=== PATIENT | female | born 1940 | race Caucasian/White ===

== ENCOUNTER 2018-10-17 09:30 | Emergency (ER) | payer MEDICARE, OTHER ==
[~2018-10-17] VITALS: Ht 152.4 cm; Wt 76.7 kg
--- OUTSIDE RECORDS SUMMARY | ~2018-10-17 | XMS | Clinical Summary ---
Demographics + + + | Address | [address] | | | [place] [address] | + + + | Home Phone | | + + + | Preferred Language | Unknown | + + + | Marital Status | | + + + | Sabianism Affiliation | Unknown | + + + | Race | Unknown | + + + | Ethnic Group | Unknown | + + + Author + + + | Author | [facility] | + + + | Organization | [facility] | + + + | Address | Unknown | + + + | Phone | Unavailable | + + + Support + + +---------+ + | Name | Relationship | Address | Phone | + + +---------+ + | Tyler Delgado | ECON | Unknown | | + + +---------+ + | Aime Barrera | ECON | Unknown | | + + +---------+ + Care Team Providers + +------+ + | Care Mutuel Machine Operator Name | Role | Phone | [...] ambulated her the entire length of the hospitals 2 wings (350 | | yards), no [...] | Echo: naLast Stress Test, 12/08/2014: 3:01min Christian, no chest | | pain, +SOB, ECG (+) [...] Vaccine: Influenza | | | | | (Season Ended) | 9 | | | + + [...] +------+-------+ + | MEDICARE | MEDICA | [id number] | | | [address] | | | RE | | | | [place] [address] | | | IP-OP | | | | | + +--------+ +------+-------+ + | AETNA | AETNA | [id number] | | | | | | - [...] | | [place] | | 1941 | [phone] | | | [place] | | | [phone] | | + +--------+ +--------+ + +
--- OUTSIDE RECORDS SUMMARY | ~2018-10-17 | XMS | Clinical Summary ---
Demographics + + + | Address | [address] | | | [place] [address] | + + + | Home Phone | | + + + | Preferred Language | Unknown | + + + | Marital Status | | + + + | Pentecostal Affiliation | Unknown | + + + | Race | Unknown | + + + | Ethnic Group | Unknown | + + + Author + + + | Author | [facility] | + + + | Organization | [...] Team Providers + +------+ + | Care Gasoline Engine Inspector Name | Role | Phone | + [...] +------+-------+ + | MEDICARE | MEDICA | [id number] | | | [address] | | | RE | | | | [place] [phone] | | | IP-OP | | | | | + +--------+ +------+-------+ + | AETNA | AETNA | [id number] | | | | | | - [...] | | [place] | | 1941 | [phone] | | | [place] | | | [phone] | | + +--------+ +--------+ + +
--- OUTSIDE RECORDS SUMMARY | ~2018-10-17 | XMS | Clinical Summary ---
Demographics + + + | Address | [address] | | | [place] [address] | + + + | Home Phone | | + + + | Preferred Language | Unknown | + + + | Marital Status | | + + + | Yazidi Affiliation | Unknown | + + + | Race | Unknown | + + + | Ethnic Group | Unknown | + + + Author + + + | Author | [facility] | | | and Stivenana | + + + | Organization | [facility] [...] [place], [place] | | | | | [address] | | + + + + + | [facility] | ECON | [address] | | | | | [place], [place] | | | | | [address] | | + + + + + Care Team Providers + +------+ + | Care Metal Melter Name | Role | Phone | + +------+ + | Jocelin Haney | PP | | + +------+ + Allergies No Known Allergies Medications + + + +---------+------+------+-------+ | Medication | Sig | Dispensed | Refills | Star | End | Statu | | | | | | t | Date | s | | | | | | Date | | | + + + +---------+------+------+-------+ | levothyroxine | Take 75 mcg by mouth | | 0 | | | Activ | | (SYNTHROID, | every morning | | | | | e | | LEVOTHROID) 75 MCG | (before breakfast). | | | | | | | tablet | | | | | | | + + + +---------+------+------+-------+ | amLODIPine | Take 10 mg by mouth | | 0 | | | Activ | | (NORVASC) 5 mg | Daily. | | | | | e | | tablet | | | | | | | + + + +---------+------+------+-------+ | metFORMIN | Take 500 mg by mouth | | 0 | | | Activ | | (GLUCOPHAGE) 500 mg | 2 times daily (with | | | | | e | | tablet | breakfast & | | | | | | | | dinner). | | | | | | + + + +---------+------+------+-------+ | losartan (COZAAR) | Take 50 mg by mouth | | 0 | | | Activ | | 50 mg tablet | Daily. | | | | | e | + + + +---------+------+------+-------+ | aspirin 81 mg | Take 81 mg by mouth | | 0 | | | Activ | | chewable tablet | Daily. | | | | | e | + + + +---------+------+------+-------+ Active Problems Not on file Social History + + + +--------+ + [...] recent travel history available. | + + Last Filed Vital Signs + + + + | Vital Sign | Reading | Time Taken | + + + + | Blood Pressure | 145/70 | 01/03/20181304 PDT | + + + + | Pulse | 64 | 01/03/20181304 PDT | + + + + | Temperature | 36.6 C (97.9 F) | 01/03/20181304 PDT | + + + + | Respiratory Rate | 16 | 01/03/20181304 PDT | + + + + | Oxygen Saturation | 97% | 01/03/20181304 PDT | + + + + | Inhaled Oxygen | - | - | | Concentration | | | + + + + | Weight | 77.1 kg (170 lb) | 10/27/20131124 PDT | + + + + | Height | 152.4 cm (5') | 10/27/20131124 PDT | + + + + | Body Mass Index | 33.2 | 10/27/2013 1125 PDT | + + + + Plan [...] filefrom Last 3 Months Insurance + +--------+ +--------+ +---------+--------+ | Payer | Benefi | Subscriber | Effect | Phone | Address | Type | | | t Plan | ID | abel | | | | | | / | | Dates | | | | | | Group | | | | | | + +--------+ +--------+ +---------+--------+ | MEDICARE | MEDICA | [id number] | 06/18/19 | [phone] | | Medica | | | RE | | 05-Pre | 5 | | re | | | PART A | | sent | | | | | | AND B | | | | | | + +--------+ +--------+ +---------+--------+ | AETNA | AETNA | [id number] | 06/18/19 | | | PPO | | | STATE | | 14-Pre | | | | | | [place] | | sent | | | | | | [place] | | | | | | | | [place] | | | | | | + +--------+ +--------+ +---------+--------+ | MEDICARE | MEDICA | [id number] | 06/18/19 | [phone] | | Medica | | | RE | | 05-Pre | 5 | | re | | | PART A | | sent | | | | | | AND B | | | | | | + +--------+ +--------+ +---------+--------+ | AETNA | AETNA | [id number] | 06/18/19 | | | PPO | | | STATE | | 14-Pre | | | | | | [place] | | sent | | | | | | [place]IRE | | | | | | | | [place] | | | | | | + +--------+ +--------+ +---------+--------+ + +--------+ +--------+ + + | Guarantor Name | Accoun | Relation to | Date | Phone | Billing Address | | | t Type | Patient | of | | | | | | | | | | + +--------+ +--------+ + + | Norma House | Person | Self | [birth year] | | [address] | | [place] | al/Fam | | 1941 | [phone] | [place] [address] | | | [place] | | | 2 (Home) | | + +--------+ +--------+ + + | Norma House | Person | Self | [birth year] | | [address] | | [place] | al/Fam | | 1941 | [phone] | [place] [address] | | | [place] | | | 2 (Home) | | + +--------+ +--------+ + + Advance Directives Patient has advance care planning documents on file. For more information, please contact:[facility] [place] [address]"
--- OUTSIDE RECORDS SUMMARY | ~2018-10-17 | XMS | Clinical Summary ---
Demographics + + + | Address | [address] | | | [place] [address] | + + + | Home Phone | | + + + | Preferred Language | Unknown | + + + | Marital Status | | + + + | Church Affiliation | Unknown | + + + | Race | Unknown | + + + | Ethnic Group | Unknown | + + + Author + + + | Author | [facility] | | | and St[place] | + + + | Organization | [facility] | | | and [...] [place], [place] | | | | | [address] | | + + + + + | [facility] | ECON | [address] | | | | | [place], [place] | | | | | [address] | | + + + + + Care Team Providers + +------+ + | Care Estate And Trust Tax Principal Name | Role | Phone | + [...] +--------+ +---------+--------+ | MEDICARE | MEDICA | [id number] | 06/18/19 | [phone] | | Medica | | | RE | | 05-Pre | 5 | | re | | | PART A | | sent | | | | | | AND B | | | | | | + +--------+ +--------+ +---------+--------+ | AETNA | AETNA | [id number] | 06/18/19 | | | PPO | | | [place] | | 14-Pre | | | | | | [place] | | sent | | | | | | [place] | | | | | | | | [place] | | | | | | + +--------+ +--------+ +---------+--------+ | MEDICARE | MEDICA | [id number] | 06/18/19 | [phone] | | Medica | | | RE | | 05-Pre | 5 | | re | | | PART A | | sent | | | | | | AND B | | | | | | + +--------+ +--------+ +---------+--------+ | AETNA | AETNA | [id number] | 06/18/19 | | | PPO | [...] [place] | al/Fam | | 1941 | [phone] | [place] [address] | | | [place] | | | 2 (Home) | | + +--------+ +--------+ + + | Norma House | Person | Self | [birth year] | | [address] | | [place] | al/Fam | | 1941 | [phone] | [place] [address] | | | [place] | | | 2 (Home) | | + +--------+ +--------+ + + Advance Directives Patient has advance care planning documents on file. For more information, please contact:[facility] [place] [address]"
[~2018-10-17 09:30] MED LIST: ALLOPURINOL300 MG PO; AMLODIPINE BESY10 MG PO; FLUOXETINE HCL20 MG PO; JANUVIA100 MG PO; LOSARTAN POTASS50 MG PO; PATANOL5 ML OD; SIMVASTATIN20 MG PO; SYNTHROID75 MCG PO
[2018-10-17] MEDS ORDERED: LIPITOR10 MG PO (09:58)
[2018-10-17] MEDS ORDERED: FORTAMET500 MG PO (09:58)
[2018-10-17] MEDS ORDERED: LOSARTAN-HCTZ1 EAC2 PO (09:59)
--- NOTE | 2018-10-17 13:51 | EKG ---
[facility] [address] [place], [place] [address] Signed Sinus bradycardia with sinus arrhythmia with occasional premature ventricular complexes Low voltage QRS Nonspecific ST abnormality Abnormal ECG No previous ECGs available Confirmed by HORTENCIA JACOBSEN DO ([id number]) on 10/17/2018 1:51:15 PM Electronically Signed By: HORTENCIA JACOBSEN DO 10/17/18 1351 PATIENT NAME: KRISH DELGADO Electrocardiogram DATE OF : 38 PHYSICIAN: HORTENCIA JACOBSEN DO REPORT #: [id number] REPORT IS CONFIDENTIAL AND NOT TO BE RELEASED WITHOUT AUTHORIZATION
== END 2018-10-17 11:47 | disposition home or self-care (01) ==
LOC: ED 09:30
DX: I10 Essential (primary) hypertension (principal); F32.9 Major depressive disorder, single episode, unspecified; F41.9 Anxiety disorder, unspecified; Z87.891 Personal history of nicotine dependence; Z88.8 Allergy status to other drugs, medicaments and biological substances; Z79.899 Other long term (current) drug therapy; Z79.84 Long term (current) use of oral hypoglycemic drugs
CPT/HCPCS: 80053; 93005; 93010; 99283-25

== ENCOUNTER 2019-07-03 18:28 | Emergency (ER) | payer MEDICARE, OTHER ==
[~2019-07-03] VITALS: Ht 152.4 cm; Wt 76.7 kg
--- OUTSIDE RECORDS SUMMARY | ~2019-07-03 | XMS | Clinical Summary ---
Demographics + + + | Address | [address] | | | [place] [address] | + + + | Home Phone | | + + + | Preferred Language | Unknown | + + + | Marital Status | | + + + | Confucianist Affiliation | Unknown | + + + | Race | Unknown | + + + | Ethnic Group | Unknown | + + + Author + + + | Author | [facility] (Historical as of | | | 02-01-19) | + + + | Organization | [facility] (Historical as of | | | 02-01-19) | + + + | Address | Unknown | + + + | Phone | Unavailable | + + + Support + + +---------+ + | Name | Relationship | Address | Phone | + + +---------+ + | Tyler Delgado | LAXMI | Unknown | | + + +---------+ + | BarryAime devine | ECON | Unknown | | + + +---------+ + Care Team Providers + +------+ + | Care Music Library Assistant Name | Role | Phone | + +------+ + | Willi Onofre MD | PP | Unavailable | + +------+ + Allergies No Known Allergies Current Medications + + +-------+---------+------+------+-------+ | Prescription | Sig. | Disp. | Refills | Star | End | Statu | | | | | | t | Date | s | | | | | | Date | | | + + +-------+---------+------+------+-------+ | sitagliptan | Take 100 mg by mouth | | | | | Activ | | (JANUVIA) 100 MG | every morning. | | | | | e | | tablet | | | | | | | + + +-------+---------+------+------+-------+ | allopurinol | Take 300 mg by mouth | | | | | Activ | | (ZYLOPRIM) 300 MG | daily. | | | | | e | | tablet | | | | | | | + + +-------+---------+------+------+-------+ | aspirin 81 MG EC | Take 81 mg by mouth | | | | | Activ | | tablet | daily with | | | | | e | | | breakfast. | | | | | | + + +-------+---------+------+------+-------+ | levothyroxine | Take 75 mcg by mouth | | | | | Activ | | (SYNTHROID) 75 MCG | every morning | | | | | e | | tablet | before breakfast. | | | | | | + + +-------+---------+------+------+-------+ | losartan (COZAAR) | Take 50 mg by mouth | | | | | Activ | | 50 MG tablet | daily. | | | | | e | + + +-------+---------+------+------+-------+ | amLODIPine | Take 10 mg by mouth | | | | | Activ | | (NORVASC) 10 MG | daily. | | | | | e | | tablet | | | | | | | + + +-------+---------+------+------+-------+ | simvastatin | Take 10 mg by mouth | | | | | Activ | | (ZOCOR) 10 MG | nightly. 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 | + + + + + | Hyperlipidemia | 11/12/2014 | + + + + + | Last Assessment & Plan: Hyperlipidemia, continue current | | meds, labs anticipated. | + + + + + | Right carotid bruit | 11/12/2014 | + + + + + | Last Assessment & Plan: Right carotid bruit, asymptomatic. | | Carotid ultrasound results discussed with patient. Clinically | | asymptomatic.Carotid US,12/08/2014: moderate disease right ICA, | | mild disease left ICA. | + + + + + | PAD (peripheral artery disease) | 11/12/2014 | + + + + + | Last Assessment & Plan: Right femoral bruit, diminished | | pulses in the left leg. Despite her advanced disease, I | | ambulated her the entire length of the [facility] 2 wings (350 | | yards), no symptoms of claudication.Arterial US, lower ext, | | 12/08/2014: severe disease right common iliac, moderate right SFA, | | DAVE: 0.69 | | mild-moderate disease common left common iliac, moderate left | | SFA, DAVE: 0.77 | + + + + + | Precordial pain | 11/12/2014 | + + + + + | Last Assessment & Plan: Chest pain. 74yo WF, with | | new-onset chest discomfort, throat tightness and face numbness. | | She was home when she noticed these symptoms, not significantly | | active, was or where that her blood pressure was high, apparently | | had forgotten to take her medicines, becoming quite concerned | | she emergency room, workup was unremarkable, discharged for | | outpatient follow-up. She is modestly active, caring for her | | , she is not had a prior history of chest discomfort. She | | does not recall having shortness of breath, nausea, or | | diaphoresis with her recent chest discomfort, unaware of any | | palpitations. She has no prior history of coronary artery | | disease, myocardial infarction, congestive heart failure, | | congenital heart disease, rheumatic heart disease, palpitations, | | or syncope. She does have a number of risk factors for coronary | | disease including hypertension and diabetes. She was a previous | | smoker, but quit smoking in 1997. She states that her | | has reported to her, episodes of her not breathing when she is | | sleeping, but she denies snoring. Patient had an exercise | | tolerance test, intermediate risk. Because of her symptoms and | | risk factors, will have her undergo nuclear perfusion study. | | Lipid panel is pending, consider intensifying lipid therapy.Hx | | CABG: noHx PCI/stent: noHx Pacemaker/ICD: noLast Cath: naLast | | Echo: naLast Stress Test, 12/08/2014: 3:01min eldno Gonzales chest | | pain, +SOB, ECG (+) for ischemia, occ PVC's.ECG, 10/12/2014: sinus | | bradycardia (49bpm), low voltage. | + + Family History + + +------+ + | Medical History | Relation | Name | Comments | + + +------+ + | Kidney disease | Maternal | | | | | Grandfath | | | | | er | | | + + +------+ + | Heart disease | Mother | | | + + +------+ + | Hypertension | Mother | | | + + +------+ + | Stroke | Mother | | | + + +------+ + | Diabetes type II | Paternal | | | | | Grandmoth | | | | | er | | | + + +------+ + | Heart disease | Paternal | | | | | Grandmoth | | | | | er | | | + + +------+ + + +------+ + + | Relation | Name | Status | Comments | + +------+ + + | Father | | | unknown status | + +------+ + + | Maternal Grandfather | | | kidney disease | | | | (Age | | | | | 88) | | + +------+ + + | Maternal Grandmother | | | unknown status | | | | (Age | | | | | 76) | | + +------+ + + | Mother | | | HTN,COPD,CHF, heart disease,CVA | | | | (Age | | | | | 78) | | + +------+ + + | Paternal Grandmother | | | Diabetes, heart disease | | | | (Age | | | | | 50) | | + +------+ + + Social History + + + +--------+ + | Tobacco Use | Types | Packs/Day | Years | Date | | | | | Used | | + + + +--------+ + | Former Smoker | Cigarettes | 1 | 28 | Quit: 03/18/1998 | + + + +--------+ + + +---+---+---+ | Smokeless Tobacco: | | | | | Never Used | | | | + +---+---+---+ + + +---------+ + | Alcohol Use | Drinks/We | oz/Week | Comments | | | ek | | | + + +---------+ + | No | 0 | 0.0 | 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., sober since | | | Standard | | 09/23/1991 | | | drinks or | | | | | | | | | | equivalen | | | | | t | | | + + +---------+ + + + + | Sex Assigned at | Date Recorded | | | | + + + | Not on file | | + + + Last Filed Vital Signs + + + + | Vital Sign | Reading | Time Taken | + + + + | Blood Pressure | 100/64 | 12/31/2014 1:38 PM PDT | + + + + | Pulse | 60 | 12/31/2014 1:38 PM PDT | + + + + | Temperature | - | - | + + + + | Respiratory Rate | 20 | 12/31/2014 1:38 PM PDT | + + + + | Oxygen Saturation | 98% | 12/31/2014 1:38 PM PDT | + + + + | Inhaled Oxygen | - | - | | Concentration | | | + + + + | Weight | 81.1 kg (178 lb 14.4 | 12/31/2014 1:38 PM PDT | | | oz) | | + + + + | Height | 154.9 cm (5' 1") | 12/31/2014 1:38 PM PDT | + + + + | Body Mass Index | 33.8 | 12/31/2014 1:38 PM PDT | + + + + Plan of Treatment + + + + + | Health Maintenance | Due Date | Last Done | Comments | + + + + + | Vaccine: | | | | | Dtap/Tdap/Td (1 - | 9 | | | | Tdap) | | | | + + + + + | Vaccine: Zoster (1 | | | | | of 2) | 0 | | | + + + + + | DEXA SCAN SCREENING | | | | | | 5 | | | + + + + + | Vaccine: | | | | | Pneumococcal 65+ | 5 | | | | Low/Medium Risk (1 | | | | | of 2 - PCV13) | | | | + + + + + | Vaccine: Influenza | | | | | (#1) | 9 | | | + + + + + Results Not on filefrom Last 3 Months Insurance + +--------+ +------+-------+ + | Payer | Benefi | Subscriber | Type | Phone | Address | | | t Plan | ID | | | | | | / | | | | | | | Group | | | | | + +--------+ +------+-------+ + | MEDICARE | MEDICA | [id number] | | | [address] | | | RE | | | | [place] [phone] | | | IP-OP | | | | | + +--------+ +------+-------+ + | AETNA | AETNA | [id number] | | | | | | - | | | | | | | [place] | | | | | | | [place] | | | | | | | [place] | | | | | + +--------+ +------+-------+ + + +--------+ +--------+ + + | Guarantor Name | Accoun | Relation to | Date | Phone | Billing Address | | | t Type | Patient | of | | | | | | | | | | + +--------+ +--------+ + + | KRISH DELGADO | Person | Self [birth year] | Home: | [address] | | | [place] | | 1941 | [phone] | | | [place] | | | [phone] | | + +--------+ +--------+ + +
--- OUTSIDE RECORDS SUMMARY | ~2019-07-03 | XMS | Encounter Summary ---
Demographics + + + | Address | [address] | | | [place] [address] | + + + | Home Phone | | + + + | Preferred Language | Unknown | + + + | Marital Status | | + + + | Advent Affiliation | Unknown | + + + | Race | Unknown | + + + | Ethnic Group | Unknown | + + + Author + + + | Author | [facility] | | | and [place] | + + + | Organization | [facility] | | | and [place] | + + + | Address | Unknown | + + + | Phone | Unavailable | + + + Support + + + + + | Name | Relationship | Address | Phone | + + + + + | Aime Barrera | ECON | [address] | | | | | [place], [place] | | | | | [address] | | + + + + + | [facility] | ECON | [address] | + | | | | [place], [place] | | | | | [address] | | + + + + + Care Team Providers + +------+ + | Care Malt House Kiln Operator Name | Role | Phone | + +------+ + | Jocelin Haney | PCP | | + +------+ + Encounter Details +--------+ + + + + | Date | Type | Department | Care Team | Description | +--------+ + + + + | 01/11/ | Orders Only | [facility] | Nestor Mckenzie | | | 2014 | | CARDIOLOGY [place] | MD [address] | | | | | [address] | Alicia Mccabe Jose [address] | | | | | [place], [place] | [place] [address] | | | | | [address] | [phone] | | | | | [phone] | | | +--------+ + + + + Social History + + + +--------+ + | Tobacco Use | Types | Packs/Day | Years | Date | | | | | Used | | + + + +--------+ + | Former Smoker | Cigarettes | 1 | | Quit: 10/27/1997 | + + + +--------+ + + + +---------+ + | Alcohol Use | Drinks/Week | oz/Week | Comments | + + +---------+ + | No | | | Alcoholic | | | | | Drinks/day: drank | | | | | 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 | + + documented as of this encounter Plan of Treatment Not on filedocumented as of this encounter Procedures + +--------+ + + + | Procedure Name | Priori | Date/Time | Associated Diagnosis | Comments | | | ty | | | | + +--------+ + + + | LIPID PANEL | Routin | 01/11/2015 | | Results for this | | | e | 11:02 AM | | procedure are in the | | | | PDT | | results section. | + +--------+ + + + | CK TOTAL | Routin | 01/11/2015 | | Results for this | | | e | 11:02 AM | | procedure are in the | | | | PDT | | results section. | + +--------+ + + + | COMPREHENSIVE | Routin | 01/11/2015 | | Results for this | | METABOLIC PANEL | e | 11:02 AM | | procedure are in the | | | | PDT | | results section. | + +--------+ + + + documented in this encounter Results CK Total (01/11/2015 11:02 AM PDT) + +-------+ + + + | Component | Value | Ref Range | Performed | Pathologist | | | | | At | Signature | + +-------+ + + + | CK, Total | 92 | 24 - 170 U/L | EXTERNAL | | | | | | LAB | | + +-------+ + + + + + | Specimen | + + | Blood specimen | | (specimen) | + + + +---------+ + + | Performing | Address | City/State/Zipcode | Phone Number | | Organization | | | | + +---------+ + + | EXTERNAL LAB | | | | + +---------+ + + Lipid Panel (01/11/2015 11:02 AM PDT) + +-------+ + + + | Component | Value | Ref Range | Performed | Pathologist | | | | | At | Signature | + +-------+ + + + | Cholesterol | 168 | 200 mg/dL | EXTERNAL | | | | | | LAB | | + +-------+ + + + | Triglycerid | 118 | 30 - 150 mg/dL | EXTERNAL | | | es | | | LAB | | + +-------+ + + + | HDL | 46.2 | 40 mg/dl | EXTERNAL | | | | | | LAB | | + +-------+ + + + | LDL | 98 | 100 mg/dL | EXTERNAL | | | Cholesterol | | | LAB | | | , | | | | | | Calculated, | | | | | | External | | | | | + +-------+ + + + | LDl/HDL | | | EXTERNAL | | | Ratio | | | LAB | | + +-------+ + + + | Chol/HDL | 3.6 | 4.44 | EXTERNAL | | | Ratio | | | LAB | | + +-------+ + + + | VLDL | 24 | 4 - 40 mg/dL | EXTERNAL | | | | | | LAB | | + +-------+ + + + | Non HDL | 122 | 130 | EXTERNAL | | | Chol. | | | LAB | | | (LDL+VLDL) | | | | | + +-------+ + + + + + | Specimen | + + | Blood specimen | | (specimen) | + + + +---------+ + + | Performing | Address | City/State/Zipcode | Phone Number | | Organization | | | | + +---------+ + + | EXTERNAL LAB | | | | + +---------+ + + Comprehensive Metabolic Panel (01/11/2015 11:02 AM PDT) + +-------+ + + + | Component | Value | Ref Range | Performed | Pathologist | | | | | At | Signature | + +-------+ + + + | Glucose, | 98 | 70 - 100 mg/dL | EXTERNAL | | | Fasting | | | LAB | | + +-------+ + + + | BUN | 18 | 6 - 23 mg/dL | EXTERNAL | | | | | | LAB | | + +-------+ + + + | Creatinine | 0.77 | 0.70 - 1.18 | EXTERNAL | | | | | mg/dL | LAB | | + +-------+ + + + | BUN/Creatin | 23.4 | 6.0 - 28.6 | EXTERNAL | | | ine Ratio | | | LAB | | + +-------+ + + + | Calcium | 9.8 | 8.4 - 10.2 | EXTERNAL | | | | | mg/dL | LAB | | + +-------+ + + + | Protein, | 7.1 | 6.0 - 8.0 g/dL | EXTERNAL | | | Total | | | LAB | | + +-------+ + + + | Albumin | 4.4 | 3.5 - 5.0 | EXTERNAL | | | | | | LAB | | + +-------+ + + + | Globulin | 2.7 | 1.8 - 3.5 | EXTERNAL | | | | | | LAB | | + +-------+ + + + | A/G Ratio | 1.6 | 1.1 - 2.4 | EXTERNAL | | | | | | LAB | | + +-------+ + + + | Bilirubin | 0.7 | 0.0 - 1.2 mg/dL | EXTERNAL | | | Total | | | LAB | | + +-------+ + + + | ALP, | 66 | 30 - 128 | EXTERNAL | | | External | | | LAB | | + +-------+ + + + | ALT | 19 | 7 - 52 U/L | EXTERNAL | | | | | | LAB | | + +-------+ + + + | AST | 18 | 13 - 39 U/L | EXTERNAL | | | | | | LAB | | + +-------+ + + + | Na | 135 | 132 - 143 | EXTERNAL | | | | | mmol/L | LAB | | + +-------+ + + + | K | 4.3 | 3.6 - 5.1 | EXTERNAL | | | | | mmol/L | LAB | | + +-------+ + + + | Cl | 101 | 95 - 112 mmol/L | EXTERNAL | | | | | | LAB | | + +-------+ + + + | CO2 | 25 | 19 - 31 mmol/L | EXTERNAL | | | | | | LAB | | + +-------+ + + + | Anion Gap | 13.3 | 7 - 21 mmol/L | EXTERNAL | | | | | | LAB | | + +-------+ + + + | Estimated | 73 | mg/dL | EXTERNAL | | | GFR | | | LAB | | + +-------+ + + + + + | Specimen | + + | Blood specimen | | (specimen) | + + + +---------+ + + | Performing | Address | City/State/Zipcode | Phone Number | | Organization | | | | + +---------+ + + | EXTERNAL LAB | | | | + +---------+ + + documented in this encounter Visit Diagnoses Not on filedocumented in this encounter"
--- OUTSIDE RECORDS SUMMARY | ~2019-07-03 | XMS | Encounter Summary ---
Demographics + + + | Address | [address] | | | [place] [address] | + + + | Home Phone | | + + + | Preferred Language | Unknown | + + + | Marital Status | | + + + | Mormon Affiliation | Unknown | + + + | Race | Unknown | + + + | Ethnic Group | Unknown | + + + Author + + + | Author | [facility] | | | and [place] | + + + | Organization | [facility] | | | and [place] | [...] [place], [place] | | | | | [address] | | + + + + + | [facility] | ECON | [address] | | | | | [place], [place] | | | | | [address] | | + + + + + Care Team Providers + +------+ + | Care Director Of Early Childhood Name | Role | Phone | + +------+ + | Willi Onofre MD | PCP | | + +------+ + Reason for Visit + + + | Reason | Comments | + + + | Nausea | | + + + | Weakness | | + + + | Dizziness | | + + + Encounter Details +--------+ + + + + | Date | Type | Department | Care Team | Description | +--------+ + + + + | 10/27/ | Emergency | [facility] | Cindy, | Hypertensive urgency | | 2013 | | [facility] | Ady Robert MD [address] | (Primary Dx); | | | | CENTER [address] | [facility] | Headache | | | | [place], [place] | [place] [address] | | | | | [address] | [phone] | | | | | [phone] | | | +--------+ + + + + Social History + + + +--------+ + | Tobacco Use | Types | Packs/Day | Years | Date | | | | | Used | | + + + +--------+ + | Former Smoker | Cigarettes | | | Quit: 10/27/1997 | + + + +--------+ + + + +---------+ + | Alcohol Use | Drinks/Week | oz/Week | Comments | + + +---------+ + | No | | | none since 1991 | + + +---------+ + + + [...] + + documented as of this encounter Last Filed Vital Signs + + + + + | Vital Sign | Reading | Time Taken | Comments | + + + + + | Blood Pressure | 147/56 | 10/27/2013 1:16 PM | | | | | PDT | | + + + + + | Pulse | 54 | 10/27/2013 1:16 PM | | | | | PDT | | + + + + + | Temperature | 36.7 C (98.1 F) | 10/27/2013 11:25 AM | | | | | PDT | | + + + + + | Respiratory Rate | 18 | 10/27/2013 1:16 PM | | | | | PDT | | + + + + + | Oxygen Saturation | 99% | 10/27/2013 1:16 PM | | | | | PDT | | + + + + + | Inhaled Oxygen | - | - | | | Concentration | | | | + + + + + | Weight | 77.1 kg (170 lb) | 10/27/2013 11:25 AM | | | | | PDT | | + + + + + | Height | 152.4 cm (5') | 10/27/2013 11:25 AM | | | | | PDT | | + + + + + | Body Mass Index | 33.2 | 10/27/2013 11:25 AM | | | | | PDT | | + + + + + documented in this encounter Discharge Instructions Instructions Ady White MD - 10/27/2013Keep track of her blood pressure and pul se rate 2-3 times daily. Document that, and take it to your next appointment with Dr. Robi pino. I would like for you to followup with Dr. Onofre within the next week or 2 at the most . If your symptoms worsen, he should return to the ER immediately. documented in this encounter Medications at Time of Discharge + + + +---------+ + + | Medication | Sig | Dispensed | Refills | Start | End Date | | | | | | Date | | + + + +---------+ + + | levothyroxine | Take 75 mcg by mouth | | 0 | | | | (SYNTHROID, | every morning | | | | | | LEVOTHROID) 75 MCG | (before breakfast). | | | | | | tablet | | | | | | + + + +---------+ + + | ondansetron | Take 1 tablet by | 15 | 0 | 10/28/19 | | | (ZOFRAN ODT) 4 mg | mouth every 6 hours | tablet | | 14 | 4 | | disintegrating | as needed for Nausea | | | | | | tablet | for up to 7 days. | | | | | + + + +---------+ + + documented as of this encounter Plan of Treatment Not on filedocumented as of this encounter Procedures + +--------+ + + + | Procedure Name | Priori | Date/Time | Associated Diagnosis | Comments | | | ty | | | | + +--------+ + + + | POC GLUCOSE | Routin | 10/27/2013 | | Results for this | | | e | 1:10 PM | | procedure are in the | | | | PDT | | results section. | + +--------+ + + + | CT HEAD WO CONTRAST | STAT | 10/27/2013 | | Results for this | | | | 12:09 PM | | procedure are in the | | | | PDT | | results section. | + +--------+ + + + documented in this encounter Results POC Glucose (10/27/2013 1:10 PM PDT) + +-------+ + + + | Component | Value | Ref Range | Performed | Pathologist | | | | | At | Signature | + +-------+ + + + | Glucose, | 110 | 79 - 150 mg/dL | [facility] | | [facility] | [facility] - | | | | | | LABORATORY | | + +-------+ + + + + + | Specimen | + + | Blood | + + + + + + + | Performing | Address | City/State/Zipcode | Phone Number | | Organization | | | | + + + + + | [facility] | [address] | [place], [place] | [phone] | | [facility] | | [address] | | | - LABORATORY | | | | + + + + + | [facility] | [address] | [place], [place] | | | [facility] | | [address] | | | - LABORATORY | | | | + + + + + CT Head wo Contrast (10/27/2013 12:09 PM PDT) + + | Specimen | + + | | + + + + + | Narrative | Performed At | + + + | CT HEAD WO CONTRAST. 10/27/2013 12:03 PM HISTORY: Severe | [facility] | | headache Hypertension DIZZINESS COMPARISON: None available. | LAB | | TECHNIQUE: Axial images were obtained from vertex to skull base | | | without IV contrast. Multiplanar reformatted images created. | | | FINDINGS: The calvarium and visible facial bones are intact. The | | | extracalvarial soft tissues are unremarkable. There is prominence of | | | the cerebral sulci as well as the lateral and third ventricles, as | | | can be seen with cerebral volume loss, not inconsistent with the | | | patient's age. There is patchy and confluent subcortical and | | | periventricular central white matter hypoattenuation, as can be seen | | | with chronic microvascular ischemic gliotic change. The brain | | | otherwise shows normal morphology and perales-white matter | | | differentiation, without evidence of acute intracranial hemorrhage, | | | mass effect, extra-axial fluid collection, or acute large vessel | | | territory infarct. The basal cisterns are patent. There is | | | calcification of the intracranial internal carotid arteries. There | | | has been bilateral cataract surgeries. The visualized orbital | | | contents are otherwise unremarkable. The visualized paranasal | | | sinuses are normally aerated. The visualized mastoid air cells and | | | middle ear cavities are normally aerated. IMPRESSION - No acute | | | intracranial hemorrhage, mass effect, extra-axial fluid collection, or | | | large vessel territory infarct. Senescent changes. Dictated and | | | Signed by: Sergio Goetz MD Electronically signed: 10/27/2013 | | | 12:19 PM | | + + + + + | Procedure Note | + + | Yrn, Rad Results In - 10/27/2013 12:[address] HEAD WO CONTRAST. 10/27/2013 12:03 | | PMHISTORY: Severe headacheHypertensionDIZZINESSCOMPARISON: None available.TECHNIQUE: | | Axial images were obtained from vertex to skull base without IVcontrast. Multiplanar | | reformatted images created.FINDINGS:The calvarium and visible facial bones are | | intact.The extracalvarial soft tissues are unremarkable.There is prominence of the | | cerebral sulci as well as the lateral and thirdventricles, as can be seen with cerebral | | volume loss, not inconsistent with thepatient's age.There is patchy and confluent | | subcortical and periventricular central whitematter hypoattenuation, as can be seen with | | chronic microvascular ischemicgliotic change.The brain otherwise shows normal | | morphology and perales-white matterdifferentiation, without evidence of acute intracranial | | hemorrhage, mass effect,extra-axial fluid collection, or acute large vessel territory | | infarct. The basal cisterns are patent. There is calcification of the | | intracranialinternal carotid arteries.There has been bilateral cataract surgeries. The | | visualized orbital contentsare otherwise unremarkable.The visualized paranasal sinuses | | are normally aerated.The visualized mastoid air cells and middle ear cavities are | | normally aerated.IMPRESSION -No acute intracranial hemorrhage, mass effect, extra-axial | | fluid collection, orlarge vessel territory infarct.Senescent changes.Dictated and Signed | | by: Sergio Goetz MD Electronically signed: 10/27/2013 12:19 PM | |matter hypoattenuation, as can be seen with chronic microvascular ischemic | |gliotic change. | |The brain otherwise shows normal morphology and perales-white matter | |differentiation, without evidence of acute intracranial hemorrhage, mass effect, | |extra-axial fluid collection, or acute large vessel territory infarct. | |The basal cisterns are patent. There is calcification of the intracranial | |internal carotid arteries. | |There has been bilateral cataract surgeries. The visualized orbital contents | |are otherwise unremarkable. | |The visualized paranasal sinuses are normally aerated. | |The visualized mastoid air cells and middle ear cavities are normally aerated. | | | |IMPRESSION - | |No acute intracranial hemorrhage, mass effect, extra-axial fluid collection, or | |large vessel territory infarct. | |Senescent changes. | | | |Dictated and Signed by: Sergio Goetz MD | | Electronically signed: 10/27/2013 12:19 PM | + + + +---------+ + + | Performing | Address | City/State/Zipcode | Phone Number | | Organization | | | | + +---------+ + + | [facility] | | | [phone] | + +---------+ + + | [facility] | | | [phone] | + +---------+ + + documented in this encounter Visit Diagnoses + + | Diagnosis | + + | Hypertensive urgency - Primary Unspecified essential hypertension | + + | Headache | + + documented in this encounter Administered Medications + +--------+ +-------+------+ + | Medication Order | MAR | Action | Dose | Rate | Site | | | Action | Date | | | | + +--------+ +-------+------+ + | diphenhydrAMINE (BENADRYL) | Given | 10/28/19 | 25 mg | | Deltoid- | | injection 25 mg 25 mg, | | 14 11:51 | | | Right | | Intramuscular, ONCE, 10/27/13 | | AM PDT | | | | | at 1200, For 1 dose | | | | | | + +--------+ +-------+------+ + +---+---+ | | | +---+---+ + +-------+ +-------+---+---+ | lisinopril (PRINIVIL, ZESTRIL) | Given | 10/28/19 | 10 mg | | | | tablet 10 mg 10 mg, Oral, ONCE, | | 14 11:50 | | | | | 10/27/13 at 1200, For 1 dose | | AM PDT | | | | + +-------+ +-------+---+---+ +---+---+ | | | +---+---+ + +-------+ +-------+---+ + | metoclopramide (REGLAN) 5 mg/mL | Given | 10/28/19 | 10 mg | | Ventrogl | | injection 10 mg 10 mg, | | 14 11:51 | | | uteal-Ri | | Intramuscular, EVERY 6 HOURS PRN, | | AM PDT | | | ght | | Nausea, Vomiting, Starting Mon | | | | | | | 10/27/13 at 1142 | | | | | | + +-------+ +-------+---+ + +---+---+ | | | +---+---+ documented in this encounter"
--- OUTSIDE RECORDS SUMMARY | ~2019-07-03 | XMS | Encounter Summary ---
Demographics + + + | Address | [address] | | | [place] [address] | + + + | Home Phone | | + + + | Preferred Language | Unknown | + + + | Marital Status | | + + + | Scientology Affiliation | Unknown | + + + | Race | Unknown | + + + | Ethnic Group | Unknown | + + + Author + + + | Author | and [facility] | | | and St[place] | + + + | Organization | and [facility] | | | and St[place]ana [...] [place], [place] | | | | | [address] | | + + + + + | Tyler Delgado | ECON | [address] | + | | | | [place], [place] | | | | | [address] | | + + + + + Care Team Providers + +------+ + | Care Public Speaking Coach Name | Role | Phone | + +------+ + | Jocelin Haney | PCP | | + +------+ + Encounter Details +--------+ + + + + | Date | Type | Department | Care Team | Description | +--------+ + + + + | 12/08/ | Orders Only | [facility] | Nestor Mckenzie | | | 2014 | | [place] | MD [address] | | | | | [address] | [address] | | | | | [address] [place], [place] | [place] [address] | | | | | [address] | [phone] | | | | | [phone] | | | +--------+ + + + [...] | No | | | none since 1992 | + + +---------+ + + + [...] | + +--------+ + + + | VAS CAROTID DUPLEX | Routin | 12/08/2014 | | Results for this | | BILATERAL | e | 4:27 PM | | procedure are in the | | | | PDT | | results section. | + +--------+ + + + documented in this encounter Results VAS Carotid Duplex Bilateral (12/08/2014 4:27 PM PDT) + + | Specimen | + + | | + + + + + | Impressions | Performed At | + + + | 1. 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 2. | | | Moderate to severe disease of the right external carotid artery. 3. | | | Mild disease of the left internal carotid artery. | | + + + + + + | Narrative | Performed At | + + + | Patient Name: KRISH DELGADO Date of : 1940 | | | Performing Physician: Kayla Esteban MD | | | | | | INDICATIONS Bruit CONCLUSIONS 1. 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 2. Moderate to | | | severe disease of the right external carotid artery. 3. Mild disease | | | of the left internal carotid artery. FINDINGS -------- Right | | | CCA: The right common carotid artery is patent and demonstrates mild | | | atherosclerotic plaque in the common carotid artery corresponding with | | | a 1-49% right common carotid stenosis. Right ICA: The right internal | | | carotid artery demonstrates moderate atherosclerotic plaque and | | | elevated velocities corresponding with a 50-69% right internal carotid | | | stenosis. Right ECA: The right external carotid artery demonstrates | | | atherosclerotic plaque. Spectral broadening is noted with an increase | | | in peak systolic velocity corresponding with a 50-99% right external | | | carotid stenosis. Right Vertebral: The right vertebral artery | | | demonstrates antegrade flow. Right Subclavian Artery: The Doppler | | | flow velocities within the right subclavian artery are elevated with | | | window filling suggesting 20-49% stenosis. Left CCA: The left | | | common carotid artery demonstrates mild atherosclerotic plaque in | | | the common carotid artery corresponding with 1-49% stenosis Left ICA: | | | The left internal carotid artery demonstrates mild atherosclerotic | | | plaque corresponding with a 16-49% left internal carotid stenosis. | | | Left ECA: The left external carotid artery demonstrates mild | | | atherosclerotic plaque corresponding with a 1-49% left external | | | carotid stenosis. Left Vertebral: The left vertebral artery | | | demonstrates antegrade flow. Left Subclavian Artery: Doppler | | | velocities in the left subclavian artery are within normal limits. | | | MEASUREMENTS CCA ED: 17.99 cm/s CCA ED: 9.82 | | | cm/s CCA ED: 9.45 cm/s CCA PS: 116.14 cm/s CCA PS: 90.81 | | | cm/s CCA PS: 74.99 cm/s CCA PS: 75.13 cm/s ICA/CCA ED: | | | 1.00 ICA/CCA ED: 3.22 ICA/CCA PS: 0.98 ICA/CCA PS: 1.70 | | | ECA AC: 51 deg ECA ED: 8.49 cm/s ECA PS: 135.98 cm/s ECA | | | PS: 216.56 cm/s ICA AC: 56 deg ICA AC: 47 deg ICA AC: | | | 28 deg ICA AC: 47 deg ICA AC: 58 deg ICA ED: 10.59 cm/s | | | ICA ED: 11.60 cm/s ICA ED: 14.37 cm/s ICA ED: 20.00 cm/s | | | ICA ED: 18.14 cm/s ICA ED: 31.70 cm/s ICA PS: 57.53 cm/s | | | ICA PS: 58.23 cm/s ICA PS: 69.60 cm/s ICA PS: 111.26 cm/s | | | ICA PS: 113.90 cm/s ICA PS: 154.47 cm/s SUBC PS: 113.26 | | | cm/s SUBC PS: 179.44 cm/s VERT ED: 7.83 cm/s VERT ED: 5.00 | | | cm/s VERT PS: 45.65 cm/s VERT PS: 35.87 cm/s Software Quality Automation Engineer: | | | DH Authenticated by: Kayla Esteban MD Report Date/Time: -- | | | [id number] | | + + + + + | Procedure Note | + + | Esequiel Pool - 02/06/2019 11:40 PM PDT Patient Name: Kilo DELGADO | | : 1940 Performing Physician: Kayla Esteban | | INDICATIONS B | | ruit CONCLUSIONS 1. 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 | | Moderate to severe disease of the right external carotid artery.3. Mild disease of the | | left internal carotid artery. FINDINGS--------Right CCA: The right common carotid artery | | is patent and demonstrates mild atherosclerotic plaque in the common carotid artery | | corresponding with a 1-49% right common carotid stenosis.Right ICA: The right internal | | carotid artery demonstrates moderate atherosclerotic plaque and elevated velocities | | corresponding with a 50-69% right internal carotid stenosis.Right ECA: The right | | external carotid artery demonstrates atherosclerotic plaque. Spectral broadening is | | noted with an increase in peak systolic velocity corresponding with a 50-99% right | | external carotid stenosis.Right Vertebral: The right vertebral artery demonstrates | | antegrade flow.Right Subclavian Artery: The Doppler flow velocities within the right | | subclavian artery are elevated with window filling suggesting 20-49% stenosis.Left CCA: | | The left common carotid artery demonstrates mild atherosclerotic plaque in the common | | carotid artery corresponding with 1-49% stenosisLeft ICA: The left internal carotid | | artery demonstrates mild atherosclerotic plaque corresponding with a 16-49% left | | internal carotid stenosis.Left ECA: The left external carotid artery demonstrates mild | | atherosclerotic plaque corresponding with a 1-49% left external carotid stenosis.Left | | Vertebral: The left vertebral artery demonstrates antegrade flow.Left Subclavian Artery: | | Doppler velocities in the left subclavian artery are within normal limits. | | MEASUREMENTS CCA ED: 17.99 cm/sCCA ED: 9.82 cm/sCCA ED: 9.45 cm/sCCA | | PS: 116.14 cm/sCCA PS: 90.81 cm/sCCA PS: 74.99 cm/sCCA PS: 75.13 cm/Jaclyn/CCA ED: | | 1.00ICA/CCA ED: 3.22ICA/CCA PS: 0.98ICA/CCA PS: 1.70ECA AC: 51 degECA ED: | | 8.49 cm/sECA PS: 135.98 cm/sECA PS: 216.56 cm/Jaclyn AC: 56 degICA AC: 47 degICA | | AC: 28 degICA AC: 47 degICA AC: 58 degICA ED: 10.59 cm/Jaclyn ED: 11.60 cm/Jaclyn | | ED: 14.37 cm/Jaclyn ED: 20.00 cm/Jaclyn ED: 18.14 cm/Jaclyn ED: 31.70 cm/Jaclyn PS: | | 57.53 cm/Jaclyn PS: 58.23 cm/Jaclyn PS: 69.60 cm/Jaclyn PS: 111.26 cm/Jaclyn PS: 113.90 | | cm/Jaclyn PS: 154.47 cm/sSUBC PS: 113.26 cm/sSUBC PS: 179.44 cm/sVERT ED: 7.83 | | cm/sVERT ED: 5.00 cm/sVERT PS: 45.65 cm/sVERT PS: 35.87 cm/s Software Quality Automation Engineer: | | DHAuthenticated by: Kayla Esteban MDReport Date/Time: -[id number]:31 | | IMPRESSION: 1. 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 Moderate to | | severe disease of the right external carotid artery.3. Mild disease of the left internal | | carotid artery. | |CCA ED: 9.45 cm/s | |CCA PS: 116.14 cm/s | |CCA PS: 90.81 cm/s | |CCA PS: 74.99 cm/s | |CCA PS: 75.13 cm/s | |ICA/CCA ED: 1.00 | |ICA/CCA ED: 3.22 | |ICA/CCA PS: 0.98 | |ICA/CCA PS: 1.70 | |ECA AC: 51 deg | |ECA ED: 8.49 cm/s | |ECA PS: 135.98 cm/s | |ECA PS: 216.56 cm/s | |ICA AC: 56 deg | |ICA AC: 47 deg | |ICA AC: 28 deg | |ICA AC: 47 deg | |ICA AC: 58 deg | |ICA ED: 10.59 cm/s | |ICA ED: 11.60 cm/s | |ICA ED: 14.37 cm/s | |ICA ED: 20.00 cm/s | |ICA ED: 18.14 cm/s | |ICA ED: 31.70 cm/s | |ICA PS: 57.53 cm/s | |ICA PS: 58.23 cm/s | |ICA PS: 69.60 cm/s | |ICA PS: 111.26 cm/s | |ICA PS: 113.90 cm/s | |ICA PS: 154.47 cm/s | |SUBC PS: 113.26 cm/s | |SUBC PS: 179.44 cm/s | |VERT ED: 7.83 cm/s | |VERT ED: 5.00 cm/s | |VERT PS: 45.65 cm/s | |VERT PS: 35.87 cm/s | | | |Software Quality Automation Engineer: | |Authenticated by: Kayla Esteban MD | |Report Date/Time: -- [id number]:31 | | | |IMPRESSION: | |1. 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 | |2. Moderate to severe disease of the right external carotid artery. | |3. Mild disease of the left internal carotid artery. | + + documented in this encounter Visit Diagnoses Not on filedocumented in this encounter"
--- OUTSIDE RECORDS SUMMARY | ~2019-07-03 | XMS | Encounter Summary ---
Demographics + + + | Address | [address] | | | [place] [address] | + + + | Home Phone | | + + + | Preferred Language | Unknown | + + + | Marital Status | | + + + | Anglican Affiliation | Unknown | + + + | Race | Unknown | + + + | Ethnic Group | Unknown | + + + Author + + + | Author | [facility] | | | and [place] | + + + | Organization | [facility] | | | and [place] | [...] [place], [place] | | | | | [address] | | + + + + + | [facility] | ECON | [address] | + | | | | [place], [place] | | | | | [address] | | + + + + + Care Team Providers + +------+ + | Care Buckle Stapler Name | Role | Phone | + +------+ + | Jocelin Haney | PCP | | + +------+ + Encounter Details +--------+ + + + + | Date | Type | Department | Care Team | Description | +--------+ + + + + | 07/17/ | Orders Only | [facility] | Willi Onofre | | | 2012 | | [address] | MD [address] | | | | | [place], [place] | [facility] | | | | | [address] | [place] [address] | | | | | [phone] | [phone] | | | | | | | | +--------+ + + + + Social History + +-------+ +--------+------+ | Tobacco Use | Types | Packs/Day | Years | Date | | | | | Used | | + +-------+ +--------+------+ | Never Assessed | | | | | + +-------+ +--------+------+ + + + | Sex Assigned at [...] | + +--------+ + + + | CULTURE, URINE | Routin | 07/17/2012 | | Results for this | | | e | 3:18 PM | | procedure are in the | | | | PST | | results section. | + +--------+ + + + documented in this encounter Results Culture, Urine (07/17/2012 3:18 PM PST) + + | Specimen | + + | | + + + + + | Narrative | Performed At | + + + | Specimen Description URINE, COLLECTION NOT | EXTERNAL LAB | | GIVEN Testing | | | performed at [facility];[address] [place] [address];[place] [address] CULTURE | | | <10,000 CFU/ML GRAM NEGATIVE | | | RODS NO | | | SUSCEPTIBILITY TO FOLLOW | | | Testing performed at [facility];[address] [place] [address];[place], [place] | | | [address] REPORT STATUS 07/18/2012 FINAL | | + + + + +---------+ + + | Performing | Address | City/State/Zipcode | Phone Number | | Organization | | | | + +---------+ + + | EXTERNAL LAB | | | | + +---------+ + + documented in this encounter Visit Diagnoses Not on filedocumented in this encounter"
--- OUTSIDE RECORDS SUMMARY | ~2019-07-03 | XMS | Encounter Summary ---
Demographics + + + | Address | [address] | | | [place] [address] | + + + | Home Phone | | + + + | Preferred Language | Unknown | + + + | Marital Status | | + + + | Jewish Affiliation | Unknown | + + + | Race | Unknown | + + + | Ethnic Group | Unknown | + + + Author + + + | Author | [facility] | | | and St[place] | + + + | Organization | [facility] | | | and Stivenana [...] [place], [place] | | | | | [address] | | + + + + + | Tyler Delgado | ECON | [address] | + | | | | [place], [place] | | | | | [address] | | + + + + + Care Team Providers + +------+ + | Care Monitoring Coordinator Name | Role | Phone | + +------+ + | Jocelin Haney | PCP | | + +------+ + Encounter Details +--------+ + + + + | Date | Type | Department | Care Team | Description | +--------+ + + + + | 12/08/ | Orders Only | [facility] | Nestor Mckenzie | | | 2014 | | [place] | [address] | | | | | [address] | [address] | | | | | [address] [place], [place] | [place] [address] | | | | | [address] | [phone] | | | | | [phone] | | | +--------+ + + + [...] + +--------+ + + + | VAS AORTA ILIAC | Routin | 12/08/2014 | | Results for this | | DUPLEX COMPLETE | e | 4:27 PM | | procedure are in the | | | | PDT | | results section. | + +--------+ + + + documented in this encounter Results VAS Aorta Iliac Duplex Complete (12/08/2014 4:27 PM PDT) + + | Specimen | + + | | + + + + + | Impressions | Performed At | + + + | 1. The abdominal aorta is borderline ectatic mid distally with | | | atherosclerotic changes but no evidence of any aneurysmal dilation | | | or significant stenosis. 2. 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 3. 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 | | | 4. Right ankle brachial index of 0.69 suggests moderate degree of | | | obstruction. 5. Mild to moderate disease of the left common iliac | | | artery. 6. Moderate to severe disease of the left proximal | | | superficial femoral artery. 7. Left ankle brachial index 0.77 | | | suggests mild to moderate degree of obstruction. | | + + + + + + | Narrative | Performed At | + + + | Patient Name: NORMA DELGADO Date of : 1940 | | | Performing Physician: Kayla Esteban MD | | | | | | INDICATIONS Left femoral bruit CONCLUSIONS | | | 1. The abdominal aorta is borderline ectatic mid distally | | | with atherosclerotic changes but no evidence of any aneurysmal | | | dilation or significant stenosis. 2. Severe stenosis in the right | | | common iliac artery. 3. Moderate disease of the right superficial | | | femoral artery. 4. Right ankle brachial index of 0.69 suggests | | | moderate degree of obstruction. 5. Mild to moderate disease of the | | | left common iliac artery. 6. Moderate to severe disease of the left | | | proximal superficial femoral artery. 7. Left ankle brachial index | | | 0.77 suggests mild to moderate degree of obstruction. FINDINGS | | | -------- Aorta: The abdominal aorta is borderline ectatic mid | | | distally with atherosclerotic changes but no evidence of any | | | aneurysmal dilation or significant stenosis. Right Illiac: The right | | | common iliac artery demonstrates 70-99% stenosis. Right Illiac: The | | | right external iliac artery is patent with evidence of 1-49% | | | stenosis. Right INSTRUCTOR WEAVING: The right common femoral artery is patent with | | | 1-49% stenosis. Right PFA: The right profunda femoris artery | | | demonstrates 1-49% stenosis. Right SFA: The right superficial femoral | | | artery is patent with diffuse atherosclerotic changes and multiple | | | 50-69% stenosis. Right POP: The right popliteal artery is patent with | | | 1-49% stenosis. Right trifurcation vessels: The right peroneal | | | artery is not seen. No other significant trifurcation disease noted. | | | [no group]: Right ankle brachial index of 0.69 suggests moderate | | | degree of obstruction. Left Illiac: The left common iliac artery | | | demonstrates a borderline 50-69% stenosis. Left Illiac: The left | | | external iliac artery is patent with evidence of 1-49% stenosis. | | | Left INSTRUCTOR WEAVING: The left common femoral artery is patent with 1-49% | | | stenosis. Left PFA: The left profunda femoris artery demonstrates | | | 1-49% stenosis. Left SFA: The left superficial femoral artery is | | | patent with diffuse disease and a proximal borderline 70-99% stenosis. | | | Left Popliteal: The left popliteal artery is patent with 1-49% | | | stenosis. Left trifurcation vessels: Normal left trifurcation flow. | | | [no group]: Left ankle brachial index 0.77 suggests mild to moderate | | | degree of obstruction. MEASUREMENTS ROXANNA AC: 59 | | | deg ROXANNA AC: 43 deg ROXANNA AC: 22 deg ROXANNA PS: 51.09 cm/s ROXANNA | | | PS: 55.08 cm/s ROXANNA PS: 40.99 cm/s ROXANNA PS: 41.88 cm/s INSTRUCTOR WEAVING | | | AC: 48 deg INSTRUCTOR WEAVING AC: 43 deg INSTRUCTOR WEAVING PS: 173.33 cm/s INSTRUCTOR WEAVING PS: | | | 130.77 cm/s CYNTHIA AC: 60 deg CYNTHIA PS: 220.97 cm/s CYNTHIA PS: | | | 142.47 cm/s CYNTHIA PS: 165.86 cm/s CYNTHIA PS: 415.27 cm/s DFA PS: | | | 106.87 cm/s DFA PS: 85.21 cm/s EIA AC: 60 deg EIA AC: | | | 60 deg EIA AC: 60 deg EIA PS: 160.93 cm/s EIA PS: 106.63 | | | cm/s EIA PS: 145.08 cm/s EIA PS: 132.12 cm/s Pop AC: 51 | | | deg Pop AC: 59 deg Pop PS: 45.61 cm/s Pop PS: 48.23 cm/s | | | Pop PS: 66.30 cm/s Pop PS: 73.39 cm/s ECHOCARDIOGRAPH TECHNICIAN AC: 57 deg ECHOCARDIOGRAPH TECHNICIAN | | | AC: 47 deg ECHOCARDIOGRAPH TECHNICIAN PS: 59.45 cm/s ECHOCARDIOGRAPH TECHNICIAN PS: 69.30 cm/s SFA PS: | | | 50.96 cm/s SFA PS: 88.02 cm/s SFA PS: 109.49 cm/s SFA PS: | | | 129.91 cm/s SFA PS: 418.90 cm/s SFA PS: 241.82 cm/s AO | | | prox PS: 75.83 cm/s AO dist: 131.47 cm/s AO mid PS: 103.00 | | | cm/s AO mid-dist PS: 105.59 cm/s RCIA PS: 415.27 cm/s AO | | | dist: 1.29 cm Lt. CYNTHIA: 0.94 cm AO prox: 1.30 cm Rt. CYNTHIA: | | | 0.82 cm AO mid-dist: 1.99 cm AO mid: 1.32 cm | | | Tire Specialist: LOYDA Authenticated by: Kayla Esteban MD Report | | | Date/Time: -- [id number] | | + + + + + | Procedure Note | + + | Esequiel Pool Conversion - 02/06/2019 11:40 PM PDT Patient Name: Cullen DELGADO of | | : 1940 Performing Physician: Kayla Esteban | | MD INDICATIONS L | | eft femoral bruit CONCLUSIONS 1. The abdominal aorta is borderline ectatic mid | | distally with atherosclerotic changes but no evidence of any aneurysmal dilation or | | significant stenosis.2. 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 Moderate | | disease of the right superficial femoral artery.4. Right ankle brachial index of 0.69 | | suggests moderate degree of obstruction.5. Mild to moderate disease of the left common | | iliac artery.6. Moderate to severe disease of the left proximal superficial femoral | | artery.7. Left ankle brachial index 0.77 suggests mild to moderate degree of | | obstruction. FINDINGS--------Aorta: The abdominal aorta is borderline ectatic mid | | distally with atherosclerotic changes but no evidence of any aneurysmal dilation or | | significant stenosis. Right Illiac: The right common iliac artery demonstrates 70-99% | | stenosis. Right Illiac: The right external iliac artery is patent with evidence of 1-49% | | stenosis.Right INSTRUCTOR WEAVING: The right common femoral artery is patent with 1-49% stenosis.Right | | PFA: The right profunda femoris artery demonstrates 1-49% stenosis.Right SFA: The right | | superficial femoral artery is patent with diffuse atherosclerotic changes and multiple | | 50-69% stenosis.Right POP: The right popliteal artery is patent with 1-49% | | stenosis.Right trifurcation vessels: The right peroneal artery is not seen. No other | | significant trifurcation disease noted.[no group]: Right ankle brachial index of 0.69 | | suggests moderate degree of obstruction. Left Illiac: The left common iliac artery | | demonstrates a borderline 50-69% stenosis. Left Illiac: The left external iliac artery | | is patent with evidence of 1-49% stenosis. Left INSTRUCTOR WEAVING: The left common femoral artery is | | patent with 1-49% stenosis.Left PFA: The left profunda femoris artery demonstrates 1-49% | | stenosis.Left SFA: The left superficial femoral artery is patent with diffuse disease | | and a proximal borderline 70-99% stenosis.Left Popliteal: The left popliteal artery is | | patent with 1-49% stenosis.Left trifurcation vessels: Normal left trifurcation flow.[no | | group]: Left ankle brachial index 0.77 suggests mild to moderate degree of obstruction. | | MEASUREMENTS ROXANNA AC: 59 degATA AC: 43 degATA AC: 22 degATA PS: 51.09 | | cm/sATA PS: 55.08 cm/sATA PS: 40.99 cm/sATA PS: 41.88 cm/sCFA AC: 48 degCFA AC: | | 43 degCFA PS: 173.33 cm/sCFA PS: 130.77 cm/sCIA AC: 60 degCIA PS: 220.97 | | cm/sCIA PS: 142.47 cm/sCIA PS: 165.86 cm/sCIA PS: 415.27 cm/sDFA PS: 106.87 | | cm/sDFA PS: 85.21 cm/sEIA AC: 60 degEIA AC: 60 degEIA AC: 60 degEIA PS: 160.93 | | cm/sEIA PS: 106.63 cm/sEIA PS: 145.08 cm/sEIA PS: 132.12 cm/sPop AC: 51 degPop | | AC: 59 degPop PS: 45.61 cm/sPop PS: 48.23 cm/sPop PS: 66.30 cm/sPop PS: 73.39 | | cm/sPTA AC: 57 degPTA AC: 47 degPTA PS: 59.45 cm/sPTA PS: 69.30 cm/sSFA PS: | | 50.96 cm/sSFA PS: 88.02 cm/sSFA PS: 109.49 cm/sSFA PS: 129.91 cm/sSFA PS: 418.90 | | cm/sSFA PS: 241.82 cm/Mark prox PS: 75.83 cm/Mark dist: 131.47 cm/Mark mid PS: | | 103.00 cm/Mark mid-dist PS: 105.59 cm/sRCIA PS: 415.27 cm/Mark dist: 1.29 cmLt. CYNTHIA: | | 0.94 cmAO prox: 1.30 cmRt. CYNTHIA: 0.82 cmAO mid-dist: 1.99 cmAO mid: 1.32 cm | | Tire Specialist: DHAuthenticated by: Kayla MARIEeport Date/Time: -- | | [id number] IMPRESSION: 1. The abdominal aorta is borderline ectatic mid | | distally with atherosclerotic changes but no evidence of any aneurysmal dilation or | | significant stenosis.2. 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 Moderate | | disease of the right superficial femoral artery.4. Right ankle brachial index of 0.69 | | suggests moderate degree of obstruction.5. Mild to moderate disease of the left common | | iliac artery.6. Moderate to severe disease of the left proximal superficial femoral | | artery.7. Left ankle brachial index 0.77 suggests mild to moderate degree of | | obstruction. | |ROXANNA PS: 40.99 cm/s | |ROXANNA PS: 41.88 cm/s | |INSTRUCTOR WEAVING AC: 48 deg | |INSTRUCTOR WEAVING AC: 43 deg | |INSTRUCTOR WEAVING PS: 173.33 cm/s | |INSTRUCTOR WEAVING PS: 130.77 cm/s | |CYNTHIA AC: 60 deg | |CYNTHIA PS: 220.97 cm/s | |CYNTHIA PS: 142.47 cm/s | |CYNTHIA PS: 165.86 cm/s | |CYNTHIA PS: 415.27 cm/s | |DFA PS: 106.87 cm/s | |DFA PS: 85.21 cm/s | |EIA AC: 60 deg | |EIA AC: 60 deg | |EIA AC: 60 deg | |EIA PS: 160.93 cm/s | |EIA PS: 106.63 cm/s | |EIA PS: 145.08 cm/s | |EIA PS: 132.12 cm/s | |Pop AC: 51 deg | |Pop AC: 59 deg | |Pop PS: 45.61 cm/s | |Pop PS: 48.23 cm/s | |Pop PS: 66.30 cm/s | |Pop PS: 73.39 cm/s | |ECHOCARDIOGRAPH TECHNICIAN AC: 57 deg | |ECHOCARDIOGRAPH TECHNICIAN AC: 47 deg | |ECHOCARDIOGRAPH TECHNICIAN PS: 59.45 cm/s | |ECHOCARDIOGRAPH TECHNICIAN PS: 69.30 cm/s | |SFA PS: 50.96 cm/s | |SFA PS: 88.02 cm/s | |SFA PS: 109.49 cm/s | |SFA PS: 129.91 cm/s | |SFA PS: 418.90 cm/s | |SFA PS: 241.82 cm/s | |AO prox PS: 75.83 cm/s | |AO dist: 131.47 cm/s | |AO mid PS: 103.00 cm/s | |AO mid-dist PS: 105.59 cm/s | |RCIA PS: 415.27 cm/s | |AO dist: 1.29 cm | |Lt. CYNTHIA: 0.94 cm | |AO prox: 1.30 cm | |Rt. CYNTHIA: 0.82 cm | |AO mid-dist: 1.99 cm | |AO mid: 1.32 cm | | | |Tire Specialist: LOYDA | |Authenticated by: Kayla Esteban MD | |Report Date/Time: -- [id number] | | | |IMPRESSION: | |1. The abdominal aorta is borderline ectatic mid distally with atherosclerotic changes but no evidence of any aneurysmal dilation or significant stenosis. | |2. 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 | |3. 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 | |4. Right ankle brachial index of 0.69 suggests moderate degree of obstruction. | |5. Mild to moderate disease of the left common iliac artery. | |6. Moderate to severe disease of the left proximal superficial femoral artery. | |7. Left ankle brachial index 0.77 suggests mild to moderate degree of obstruction. | + + documented in this encounter Visit Diagnoses Not on filedocumented in this encounter"
--- OUTSIDE RECORDS SUMMARY | ~2019-07-03 | XMS | Encounter Summary ---
Demographics + + + | Address | [address] | | | [place] [address] | + + + | Home Phone | | + + + | Preferred Language | Unknown | + + + | Marital Status | | + + + | Anabaptist Affiliation | Unknown | + + + | Race | Unknown | + + + | Ethnic Group | Unknown | + + + Author + + + | Author | [facility] | | | and Stivenana | + + + | Organization | [facility] | | | and Stivenana | [...] [place], [place] | | | | | [address] | | + + + + + | [facility] | ECON | [address] | + | | | | [place], [place] | | | | | [address] | | + + + + + Care Team Providers + +------+ + | Care Pediatric Associate Name | Role | Phone | + +------+ + | Jocelin Haney | PCP | | + +------+ + Encounter Details +--------+ + + + + | Date | Type | Department | Care Team | Description | +--------+ + + + + | 12/08/ | Orders Only | [facility] | Nestor Mckenzie | | | 2014 | | [place] | MD [address] | | | | | [address] | [address] | | | | | [address] [place], [place] | [place] [address] | | | | | [address] | [phone] | | | | | [phone] | | | +--------+ + + + [...] PS: 45.65 cm/s VERT PS: 35.87 cm/s Technical Publications Manager: | | | DH Authenticated by: Kayla Esteban MD Report Date/Time: -- | | | [id number]:31 | | + + + + + [...] cm/sVERT PS: 45.65 cm/sVERT PS: 35.87 cm/s Technical Publications Manager: | | DHAuthenticated by: Kayla Esteban MDReport Date/Time: -[id number]:30:31 | | IMPRESSION: 1. Moderate disease of [...] |VERT PS: 35.87 cm/s | | | |Technical Publications Manager: | |Authenticated by: Kayla Esteban MD | |Report Date/Time: -- [id number]:30:31 | | | |IMPRESSION: | |1. 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 | |2. Moderate to severe disease of the right external carotid artery. | |3. Mild disease of the left internal carotid artery. | + + documented in this encounter Visit Diagnoses Not on filedocumented in this encounter"
--- OUTSIDE RECORDS SUMMARY | ~2019-07-03 | XMS | Encounter Summary ---
Demographics + + + | Address | [address] | | | [place] [address] | + + + | Home Phone | | + + + | Preferred Language | Unknown | + + + | Marital Status | | + + + | Yazidism Affiliation | Unknown | + + + | Race | Unknown | + + + | Ethnic Group | Unknown | + + + Author + + + | Author | [facility] | | | and Stivenana | + + + | Organization | [facility] | | | and Stivenana | [...] [place], [place] | | | | | [address] | | + + + + + | [facility] | ECON | [address] | + | | | | [place], [place] | | | | | [address] | | + + + + + Care Team Providers + +------+ + | Care Hotel Security Officer Name | Role | Phone | + +------+ + | Jocelin Haney | PCP | | + +------+ + Reason for Visit +---------+ + | Reason | Comments | +---------+ + | Dysuria | | +---------+ + Encounter Details +--------+ + + + + | Date | Type | Department | Care Team | Description | +--------+ + + + + | 01/03/ | Hospital | [facility] | Cristal Rainey | Dysuria (Primary | | 2018 | Encounter | [facility] [address] | [address] | Dx); Urinary tract | | | | [address] | [address] | infection in female | | | | [place], [place] | [place], [place] | | | | | [address] | [address] | | | | | [phone] | | | +--------+ + + + [...] + + + | Blood Pressure | 145/70 | 01/03/2018 1:05 PM | | | | | PDT | | + + + + + | Pulse | 64 | 01/03/2018 1:05 PM | | | | | PDT | | + + + + + | Temperature | 36.6 C (97.9 F) | 01/03/2018 1:05 PM | | | | | PDT | | + + + + + | Respiratory Rate | 16 | 01/03/2018 1:05 PM | | | | | PDT | | + + + + + | Oxygen Saturation | 97% | 01/03/2018 1:05 PM | | | | | PDT | | + + + + + | Inhaled Oxygen | - | - | | | Concentration | | | | + + + + + | Weight | - | - | | + + + + + | Height | - | - | | + + + + + | Body Mass Index | - | - | | + + + + + documented in this encounter Discharge Instructions Instructions Cristal Rainey ARNP - 01/03/2018As discussed I'm going to initiate treat ment with Bactrim DS. We are running a urine culture on the sample you provided today. This generally takes 48 h ours. If your antibiotic needs to be changed we will contact you and we can change this pre scription by phone. Please follow-up with your primary care doctor upon completion of your antibiotics to be hawkins re that you're infection has completely resolved. AttachmentsThe following attachments cannot be sent through Care Everywhere.Bladder Infecti on, Female (Adult) (Latvian)Urine Culture (Latvian)documented in this encounter Medications at Time of Discharge + + + +---------+ + + | Medication | Sig | Dispensed | Refills | Start | End Date | | | | | | Date | | + + + +---------+ + + | amLODIPine | Take 10 mg by mouth | | 0 | | | | (NORVASC) 5 mg | Daily. | | | | | | tablet | | | | | | + + + +---------+ + + | aspirin 81 mg | Take 81 mg by mouth | | 0 | | | | chewable tablet | Daily. | | | | | + + + +---------+ + + | levothyroxine | Take 75 mcg by mouth | | 0 | | | | (SYNTHROID, | every morning | | | | | | LEVOTHROID) 75 MCG | (before breakfast). | | | | | | tablet | | | | | | + + + +---------+ + + | losartan (COZAAR) | Take 50 mg by mouth | | 0 | | | | 50 mg tablet | Daily. | | | | | + + + +---------+ + + | metFORMIN | Take 500 mg by mouth | | 0 | | | | (GLUCOPHAGE) 500 mg | 2 times daily (with | | | | | | tablet | breakfast & | | | | | | | dinner). | | | | | + + + +---------+ + + | | Take 1 tablet by | 14 | 0 | 01/04/20 | | | sulfamethoxazole-tri | mouth 2 times daily | tablet | | 18 | 8 | | methoprim (BACTRIM | for 7 days. | | | | | | DS) 800-160 mg per | | | | | | | tablet [...] | + +--------+ + + + | URINALYSIS, REFLEX | DIMITRI | 01/03/2018 | Dysuria | Results for this | | MICROSCOPIC AND/OR | | 1:02 PM | | procedure are in the | | CULTURE | | PDT | | results section. | + +--------+ + + + | CULTURE, URINE | Routin | 01/03/2018 | Dysuria | Results for this | | | e | 1:02 PM | | procedure are in the | | | | PDT | | results section. | + +--------+ + + + documented in this encounter Results Culture, Urine (01/03/2018 1:02 PM PDT) + + + + + + | Component | Value | Ref Range | Performed | Pathologist | | | | | At | Signature | + + + + + + | Culture | >100,000 CFU/ml | | [facility] | | | | Escherichia coli | | HEALTHCARE | | | | | | LAB | | + + + + + + + + | Specimen | + + | Urine - Urine | | specimen obtained by | | clean catch | | procedure (specimen) | + + + + +--------+ + | Organism | Antibiotic | Method | Susceptibility | + + +--------+ + | Escherichia coli | Amikacin | | <=16 ug/mL: | | | | | Sensitive | + + +--------+ + | Escherichia coli | Ampicillin | | <=8 ug/mL: | | | | | Sensitive | + + +--------+ + | Escherichia coli | Ampicillin + | | <8 ug/mL: | | | Sulbactam | | Sensitive | + + +--------+ + | Escherichia coli | Aztreonam | | <=4 ug/mL: | | | | | Sensitive | + + +--------+ + | Escherichia coli | Cefazolin | | <=8 ug/mL: | | | | | Sensitive | + + +--------+ + | Escherichia coli | Cefepime | | <=4 ug/mL: | | | | | Sensitive | + + +--------+ + | Escherichia coli | Cefoxitin | | <=8 ug/mL: | | | | | Sensitive | + + +--------+ + | Escherichia coli | Ceftazidime | | <=1 ug/mL: | | | | | Sensitive | + + +--------+ + | Escherichia coli | Ceftriaxone | | <=1 ug/mL: | | | | | Sensitive | + + +--------+ + | Escherichia coli | Cefuroxime | | <=4 ug/mL: | | | | | Sensitive | + + +--------+ + | Escherichia coli | Ciprofloxacin | | <=1 ug/mL: | | | | | Sensitive | + + +--------+ + | Escherichia coli | Ertapenem | | <=1 ug/mL: | | | | | Sensitive | + + +--------+ + | Escherichia coli | Gentamicin | | <=4 ug/mL: | | | | | Sensitive | + + +--------+ + | Escherichia coli | Imipenem | | <=1 ug/mL: | | | | | Sensitive | + + +--------+ + | Escherichia coli | Levofloxacin | | <=2 ug/mL: | | | | | Sensitive | + + +--------+ + | Escherichia coli | Meropenem | | <=1 ug/mL: | | | | | Sensitive | + + +--------+ + | Escherichia coli | Nitrofurantoin | | <=32 ug/mL: | | | | | Sensitive | + + +--------+ + | Escherichia coli | Piperacillin + | | <=16 ug/mL: | | | Tazobactam | | Sensitive | + + +--------+ + | Escherichia coli | Tigecycline | | <=2 ug/mL: | | | | | Sensitive | + + +--------+ + | Escherichia coli | Tobramycin | | <=4 ug/mL: | | | | | Sensitive | + + +--------+ + | Escherichia coli | Trimethoprim + | | <2 ug/mL: | | | Sulfamethoxazole | | Sensitive | + + +--------+ + + + + + + | Performing | Address | City/State/Zipcode | Phone Number | | Organization | | | | + + + + + | [facility] | [address] | [place], [place] | [phone] | | HEALTHCARE LAB | | [address] | | + + + + + Urinalysis, Reflex Microscopic and/or Culture (01/03/2018 1:02 PM PDT) + + + + + + | Component | Value | Ref Range | Performed | Pathologist | | | | | At | Signature | + + + + + + | Color, | [place] (A) | Yellow, Light | [facility] | | | Urine | | Yellow | HEALTHCARE | | | | | | LAB | | + + + + + + | Clarity | Cloudy (A) | Clear | [facility] | | | | | | HEALTHCARE | | | | | | LAB | | + + + + + + | pH, Urine | 5.5 | 5.0 - 8.0 | [facility] | | | | | | HEALTHCARE | | | | | | LAB | | + + + + + + | Specific | 1.015 | 1.001 - 1.030 | [facility] | | | [place] | | | HEALTHCARE | | | | | | LAB | | + + + + + + | Protein, | Comment: Unable to | Negative | [facility] | | | Urine | determine due to color | | HEALTHCARE | | | | interference | | LAB | | + + + + + + | Blood, | Moderate (A) | Negative | [facility] | | | Urine | | | HEALTHCARE | | | | | | LAB | | + + + + + + | Glucose, | 100 mg/dL (A) | Negative, >1000 | [facility] | | | Urine | | mg/dL | HEALTHCARE | | | | | | LAB | | + + + + + + | Ketones, | Comment: Unable to | Negative | [facility] | | | Urine | determine due to color | | HEALTHCARE | | | | interference | | LAB | | + + + + + + | Bilirubin, | Comment: Unable to | Negative | [facility] | | | Urine | determine due to color | | HEALTHCARE | | | | interference | | LAB | | + + + + + + | Nitrite, | Comment: Unable to | Negative | [facility] | | | Urine | determine due to color | | HEALTHCARE | | | | interference | | LAB | | + + + + + + | Leukocyte | Large (A) | Negative | [facility] | | | [facility], | | | HEALTHCARE | | | Urine | | | LAB | | + + + + + + | Urobilinoge | Comment: Unable to | 0.2 E.U./dL | [facility] | | | n, Urine | determine due to color | | HEALTHCARE | | | | interference | | LAB | | + + + + + + | WBC UA | >50 (A) | None Seen /HPF | [facility] | | | | | | HEALTHCARE | | | | | | LAB | | + + + + + + | RBC UA | None Seen | None Seen /HPF | [facility] | | | | | | HEALTHCARE | | | | | | LAB | | + + + + + + | SQUAMOUS | None Seen | None Seen, Few | [facility] | | | EPITHELIAL | | /LPF | HEALTHCARE | | | UA | | | LAB | | + + + + + + | BACTERIA UA | 3+ (A) | None Seen /HPF | [facility] | | | | | | HEALTHCARE | | | | | | LAB | | + + + + + + + + | Specimen | + + | Urine - Urine | | specimen obtained by | | clean catch | | procedure (specimen) | + + + + + + + | Performing | Address | City/State/Zipcode | Phone Number | | Organization | | | | + + + + + | [facility] | [address] | [place], [place] | [phone] | | HEALTHCARE LAB | | [address] | | + + + + + documented in this encounter Visit Diagnoses + + | Diagnosis | + + | Dysuria - Primary | + + | Urinary tract infection in female | + + documented in this encounter"
--- OUTSIDE RECORDS SUMMARY | ~2019-07-03 | XMS | Encounter Summary ---
Demographics + + + | Address | [address] | | | [place] [address] | + + + | Home Phone | | + + + | Preferred Language | Unknown | + + + | Marital Status | | + + + | Yazidi Affiliation | Unknown | + + + | Race | Unknown | + + + | Ethnic Group | Unknown | + + + Author + + + | Author | [facility] | | | and Stivenana | + + + | Organization | [facility] | | | and Stivenana | [...] [place], [place] | | | | | [address] | | + + + + + | [facility] | ECON | [address] | + | | | | [place], [place] | | | | | [address] | | + + + + + Care Team Providers + +------+ + | Care Racebook Writer Name | Role | Phone | + +------+ + | Jocelin Haney | PCP | | + +------+ + Encounter Details +--------+ + + + + | Date | Type | Department | Care Team | Description | +--------+ + + + + | 12/08/ | Orders Only | [facility] | Nestor Mckenzie | | | 2014 | | CARDIOLOGY [place] | MD [address] | | | | | [address] | Alicia Mccabe [address] | | | | | [address] | [place] [address] | | | | | [place], [place] | [phone] | | | | | [address] | | | | | | [phone] | | | +--------+ + + + [...] | + +--------+ + + + | STRESS ECG | Routin | 12/08/2014 | | Results for this | | | e | 1:29 PM | | procedure are in the | | | | PDT | | results section. | + +--------+ + + + documented in this encounter Results Stress ECG (12/08/2014 1:29 PM PDT) + + | Specimen | + + | | + + + + + | Impressions | Performed At | + + + | 1. Stress ECG mildly positive for ischemia. 2. Occasional PVCs | | | observed. 3. Poor exercise tolerance. 4 METs achieved. 4. Denise | | | Treadmill Score is -2 ( intermediate risk). | | + + + + + + | Narrative | Performed At | + + + | [facility] Treadmill Stress Test History: 74 | | | year old female being evaluated for chest pain Rest Data: HR: 59 | | | bpm BP: 157 / 68 Patient's predicted maximum HR: 145 bpm Patient's | | | predicted 85% maximum HR: 123 bpm Baseline ECG: Normal sinus rhythm | | | Stress Data: Exercise time: 03 : 16 METS: 5.20 Peak HR: 136 bpm | | | Peak BP: 218 / 62 RPP: 18006 Patient stopped due to: shortness of | | | breath Chest pain: none Stress ECG: ECG mildly positive for | | | ischemia,1.0mm ST depression in leads II, III, aVF, V5, V6. | | | Arrhythmias: Occasional PVCs observed Procedure: Christian protocol. | | | | | + + + + -----+ | Procedure Note | + -----+ | Esequiel Pool Conversion - 02/07/2019 9:53 AM [facility] | | Stress Test History:74 year old female being evaluated for chest pain Rest Data:HR: 59 | | bpm BP: 157 / 68Patient's predicted maximum HR: 145 bpmPatient's predicted 85% maximum | | HR: 123 bpmBaseline ECG: Normal sinus rhythm Stress Data:Exercise time: 03 : 16 METS: | | 5.20Peak HR: 136 bpm Peak BP: 218 / 62 RPP: 43896Xnxieta stopped due to: shortness of | | breathChest pain: noneStress ECG: ECG mildly positive for ischemia,1.0mm ST depression | | in leads II, III, aVF, V5, V6.Arrhythmias: Occasional PVCs observed Procedure:Christian | | protocol. IMPRESSION: 1. Stress ECG mildly positive for ischemia.2. Occasional PVCs | | observed.3. Poor exercise tolerance. 4 METs achieved.4. Denise Treadmill Score is -2 ( | | intermediate risk). | |Baseline ECG: Normal sinus rhythm | | | |Stress Data: | |Exercise time: 03 : 16 METS: 5.20 | |Peak HR: 136 bpm Peak BP: 218 / 62 RPP: 42630 | |Patient stopped due to: shortness of breath | |Chest pain: none | |Stress ECG: ECG mildly positive for ischemia,1.0mm ST depression in leads II, III, aVF, V5, V6. | |Arrhythmias: Occasional PVCs observed | | | |Procedure: | |Christian protocol. | | | |IMPRESSION: | |1. Stress ECG mildly positive for ischemia. | |2. Occasional PVCs observed. | |3. Poor exercise tolerance. 4 METs achieved. | |4. Denise Treadmill Score is -2 ( intermediate risk). | | | | | + -----+ documented in this encounter Visit Diagnoses Not on filedocumented in this encounter"
--- OUTSIDE RECORDS SUMMARY | ~2019-07-03 | XMS | Encounter Summary ---
Demographics + + + | Address | [address] | | | [place] [address] | + + + | Home Phone | | + + + | Preferred Language | Unknown | + + + | Marital Status | | + + + | Holiness Affiliation | Unknown | + + + | Race | Unknown | + + + | Ethnic Group | Unknown | + + + Author + + + | Author | [facility] | | | and Stivenana | + + + | Organization | [facility] | | | and Stivenana [...] [place], [place] | | | | | [address] | | + + + + + | [facility] | ECON | [address] | + | | | | [place], [place] | | | | | [address] | | + + + + + Care Team Providers + +------+ + | Care Applications Support Lead Name | Role | Phone | + [...] [address] | | | | | [place], [place] | [facility] | | | | | [address] | [place] [address] | | | | | [phone] | [phone] | | | | | | | [...] GIVEN Testing | | | performed at [facility];[address] [place] [address];[place] [address] CULTURE | | | <10,000 CFU/ML GRAM NEGATIVE | | | RODS NO | | | SUSCEPTIBILITY TO FOLLOW | | | Testing performed at [facility];[address] [place] [address];[place], [place] | | | [address] REPORT STATUS 07/18/2012 FINAL | | + + + + +---------+ + + | Performing | Address | City/State/Zipcode | Phone Number | | Organization | | | | + +---------+ + + | EXTERNAL LAB | | | | + +---------+ + + documented in this encounter Visit Diagnoses Not on filedocumented in this encounter"
--- OUTSIDE RECORDS SUMMARY | ~2019-07-03 | XMS | Clinical Summary ---
Demographics + + + | Address | [address] | | | [place] [address] | + + + | Home Phone | | + + + | Preferred Language | Unknown | + + + | Marital Status | | + + + | Orthodoxy Affiliation | Unknown | + + + | Race | Unknown | + + + | Ethnic Group | Unknown | + + + Author + + + | Author | [facility] (Historical as of | | | 02-01-19) | + + + | Organization | [facility] (Historical as of | | | 02-01-19) [...] Team Providers + +------+ + | Care Grades 9 Through 12 Teacher Name | Role | Phone | + [...] ambulated her the entire length of the [facility] wings (350 | | yards), no [...] | Echo: naLast Stress Test, 12/08/2014: 3:01min eldon Gonzales chest | | pain, +SOB, ECG [...] +------+-------+ + | MEDICARE | MEDICA | [id number] | | | [address] | | | RE | | | | [place] [address] | | | IP-OP | | | | | + +--------+ +------+-------+ + | AETNA | [employer]ETNA | [id number] | | | | | | - [...] | | denisse/Rainer | | 1941 | [phone] | | | chacha | | | [phone] | | + +--------+ +--------+ + +
--- OUTSIDE RECORDS SUMMARY | ~2019-07-03 | XMS | Encounter Summary ---
Demographics + + + | Address | [address] | | | [place] [address] | + + + | Home Phone | | + + + | Preferred Language | Unknown | + + + | Marital Status | | + + + | Episcopal Affiliation | Unknown | + + + | Race | Unknown | + + + | Ethnic Group | Unknown | + + + Author + + + | Author | [facility] | | | and Stivenana | + + + | Organization | [facility] | | | and Stivenana [...] [place], [place] | | | | | [address] | | + + + + + | [facility] | ECON | [address] | | | | | [place], [place] | | | | | [address] | | + + + + + Care Team Providers + +------+ + | Care Clinical Research Management Associate Name | Role | Phone | [...] + + | 10/27/ | Emergency | [facility] | Cindy, | Hypertensive urgency | | 2013 | | MED CTR EM[facility] | Ady Robert MD [address] | (Primary Dx); | | | | CENTER [address] | [facility] | Headache | | | | [place], [place] | [place] [address] | | | | | [address] | [phone] | | | | | [phone] | | | +--------+ + + + [...] + | [facility] | [address] | [place], [place] | [phone] | | [facility] | | [address] | | | - LABORATORY | | | | + + + + + | [address] | [address] | [place], [place] | | | [facility] | | [address] | | | - LABORATORY | | [...] + | MISCELLANEOUS LAB | | | [phone] | + +---------+ + + | MISCELANIOUS LAB | | | [phone] | + +---------+ + + documented in [...]
--- OUTSIDE RECORDS SUMMARY | ~2019-07-03 | XMS | Encounter Summary ---
Demographics + + + | Address | [address] | | | [place] [address] | + + + | Home Phone | | + + + | Preferred Language | Unknown | + + + | Marital Status | | + + + | Confucianist Affiliation | Unknown | + + + | Race | Unknown | + + + | Ethnic Group | Unknown | + + + Author + + + | Author | [facility] | | | and Stivenana | + + + | Organization | [facility] | | [address] | | | | | [place], [place] | | | | | [address] | | + + + + + | [facility] | ECON | [address] | + | | | | [place], [place] | | | | | [address] | | + + + + + Care Team Providers + +------+ + | Care Water Maintenance Supervisor Name | Role | Phone | + +------+ + PCP | Unavailable | + +------+ + Encounter Details +--------+ + + + + | Date | Type | Department | Care Team | Description | +--------+ + + + + | 09/20/ | Hospital | [facility] | | | | 2012 | Encounter | MED CTR [facility] INTRA OP | | | | | | [address] | | | | | | [place], [place] | | | | | | [address] | | | | | | [phone] | | | +--------+ + + + [...] Not on filedocumented as of this encounter Visit Diagnoses Not on filedocumented in this encounter"
--- OUTSIDE RECORDS SUMMARY | ~2019-07-03 | XMS | Encounter Summary ---
Demographics + + + | Address | [address] | | | [place] [address] | + + + | Home Phone | | + + + | Preferred Language | Unknown | + + + | Marital Status | | + + + | Scientologist Affiliation | Unknown | + + + | Race | Unknown | + + + | Ethnic Group | Unknown | + + + Author + + + | Author | [facility] | | | and Stivenana | + + + | Organization | [facility] | | | and Stivenana [...] [place], [place] | | | | | [address] | | + + + + + | [facility] | ECON | [address] | + | | | | [place], [place] | | | | | [address] | | + + + + + Care Team Providers + +------+ + | Care Electrical Products Engineer Name | Role | Phone | + +------+ + | Jocelin Haney | PCP | | + +------+ + Encounter Details +--------+ + + + + | Date | Type | Department | Care Team | Description | +--------+ + + + + | 12/08/ | Orders Only | [facility] | Nestor Mckenzie | | | 2014 | | CARDIOLOGY [place] | MD [address] | | | | | [address] | Alicia Mccabe Jose [address] | | | | | [address] | [place] [address] | | | | | [place], [place] | [phone] | | | | | [address] | | | | | | [phone] | | | +--------+ + + + [...] Performed At | + + + | [facility] Treadmill Stress Test History: 74 | [...] | Peak BP: 218 / 62 RPP: 78714 Patient stopped due to: shortness of | [...] Esequiel Pool Conversion - 02/07/2019 9:53 AM [facility] | | Stress Test History:74 year old female being evaluated for chest pain Rest Data:HR: 59 | | bpm BP: 157 / 68Patient's predicted maximum HR: 145 bpmPatient's predicted 85% maximum | | HR: 123 bpmBaseline ECG: Normal sinus rhythm Stress Data:Exercise time: 03 : 16 METS: | | 5.20Peak HR: 136 bpm Peak BP: 218 / 62 RPP: 16702Ukjdypn stopped due to: shortness of | | [...] bpm Peak BP: 218 / 62 RPP: 00907 | |Patient stopped due to: shortness of [...]
--- OUTSIDE RECORDS SUMMARY | ~2019-07-03 | XMS | Clinical Summary ---
Demographics + + + | Address | [address] | | | [place] [address] | + + + | Home Phone | | + + + | Preferred Language | Unknown | + + + | Marital Status | | + + + | Christian Affiliation | Unknown | + + + | Race | Unknown | + + + | Ethnic Group | Unknown | + + + Author + + + | Author | [facility] | | | and Stivenana | + + + | Organization | [facility] | | | and Stivenana [...] [place], [place] | | | | | [address] | | + + + + + | [facility] | ECON | [address] | | | | | [place], [place] | | | | | [address] | | + + + + + Care Team Providers + +------+ + | Care Computer Processing Scheduler Name | Role | Phone | + +------+ + | Jocelin Haney | PCP | | + +------+ + Allergies No [...] + +---------+------+------+-------+ Active Problems Not on file Family History + + +------+ + | [...] | | + + +------+ + | Diabetes, NIDDM | Paternal | | | | | [...] + | Maternal Grandfather | | | | + +------+ + + | Maternal Grandmother | | | unknown status | | | | (Age | | | | | 76) | | + +------+ + + | Mother | | | HTN,COPD,CHF, heart disease,CVA | | | | (Age | | | | | 78) | | + +------+ + + | Mother | | | | + +------+ + + | Paternal Grandmother | | | Diabetes, heart disease | | | | (Age | | | | | 50) | | + +------+ + + | Paternal Grandmother | | | | + +------+ + + Social [...] | | + + + + + Plan of Treatment + + + + + | Health Maintenance | Due Date | Last Done | Comments | + + + + + | Vaccine: | | | | | Dtap/Tdap/Td (1 - | 1 | | | | Tdap) | | | | + + + + + | Vaccine: Zoster (1 | | | | | of 2) | 0 | | | + + + + + | Breast Cancer | | | | | Screening | 5 | | | + + + + + | Vaccine: | | | | | Pneumococcal 65+ (1 | 5 | | | | of 2 - [...] +--------+ +---------+--------+ | MEDICARE | MEDICA | [id number] | 06/18/19 | [phone] | | Medica | | | RE | | 05-Pre | 5 | | re | | | PART A | | sent | | | | | | AND B | | | | | | + +--------+ +--------+ +---------+--------+ | AETNA | AETNA | [id number] | 06/18/19 | | | PPO | | | STATE | | 14-Pre | | | | | | [place] | | sent | | | | | | [place]IRE | | | | | | | | [place] | | | | | | + +--------+ +--------+ +---------+--------+ | MEDICARE | MEDICA | [id number] | 06/18/19 | [phone] | | Medica | | | RE | | 05-Pre | 5 | | re | | | PART A | | sent | | | | | | AND B | | | | | | + +--------+ +--------+ +---------+--------+ | AETNA | AETNA | [id number] | 06/18/19 | | | PPO | [...] | Self | [birth year] | [address] | [address] | al/Fam | | 1941 | [phone] | [place] [address] | | | [address]acha | | | 2 (Home) | | + +--------+ +--------+ + + | [facility] | Person | Self | [birth year] | | [address] | | [place] | al/Fam | | 1941 | [phone] | [place] [address] | | | [place]acha | | | 2 (Home) | | + +--------+ +--------+ + + Advance Directives + + + + + | Type | Date Recorded | Patient | Explanation | | | | Company Pilot | | + + + + + | Power of | | | | | Wedding Florist | | | | + + + + + | Advance | | | | | Directive | | | | + + + + +"
--- OUTSIDE RECORDS SUMMARY | ~2019-07-03 | XMS | Clinical Summary ---
Demographics + + + | Address | [address] | | | [place] [address] | + + + | Home Phone | | + + + | Preferred Language | Unknown | + + + | Marital Status | | + + + | Latter Day Affiliation | Unknown | + + + | Race | Unknown | + + + | Ethnic Group | Unknown | + + + Author + + + | Author | [facility] | | | and Stivenana | + + + | Organization | [facility] | | | and Stivenana [...] [place], [place] | | | | | [address] | | + + + + + | [facility] | ECON | [address] | | | | | [place], [place] | | | | | [address] | | + + + + + Care Team Providers + +------+ + | Care Business Architect Name | Role | Phone | + [...] +--------+ +---------+--------+ | MEDICARE | MEDICA | [id number] | 06/18/19 | [phone] | | Medica | | | RE | | 05-Pre | 5 | | re | | | PART A | | sent | | | | | | AND B | | | | | | + +--------+ +--------+ +---------+--------+ | AETNA | AETNA | [id number] | 06/18/19 | | | PPO | | | STATE | | 14-Pre | | | | | | [place] | | sent | | | | | | RETIRE | | | | | | | | [place] | | | | | | + +--------+ +--------+ +---------+--------+ | MEDICARE | MEDICA | [id number] | 06/18/19 | [phone] | | Medica | | | RE | | 05-Pre | 5 | | re | | | PART A | | sent | | | | | | AND B | | | | | | + +--------+ +--------+ +---------+--------+ | AETNA | AETNA | [id number] | 06/18/19 | | | PPO | [...] [place] | al/Fam | | 1941 | [phone] | [place] [address] | | | [place]acha | | | 2 (Home) | | + +--------+ +--------+ + + | [facility] | Person | Self | [birth year] | | [address] | | [place] | al/Fam | | 1941 | [phone] | [place] [address] | | | [place]acha | | | 2 (Home) | | + +--------+ +--------+ + + Advance Directives + + + + + | Type | Date Recorded | Patient | Explanation | | | | Bilingual Hr Generalist | | + + + + + | Power of | | | | | Small Lot Operator | | | | + + + + + | Advance | | | | | Directive | | | | + + + + +"
--- OUTSIDE RECORDS SUMMARY | ~2019-07-03 | XMS | Encounter Summary ---
Demographics + + + | Address | [address] | | | [place] [address] | + + + | Home Phone | | + + + | Preferred Language | Unknown | + + + | Marital Status | | + + + | Jew Affiliation | Unknown | + + + | Race | Unknown | + + + | Ethnic Group | Unknown | + + + Author + + + | Author | [facility] | | | and Stivenana | + + + | Organization | [facility] | | | and Stivenana [...] [place], [place] | | | | | [address] | | + + + + + | [facility] | ECON | [address] | + | | | | [place], [place] | | | | | [address] | | + + + + + Care Team Providers + +------+ + | Care Linseed Cake Trimmer Name | Role | Phone | + +------+ + PCP | Unavailable | + +------+ + Encounter Details +--------+ + + + + | Date | Type | Department | Care Team | Description | +--------+ + + + + | 09/20/ | Hospital | [facility] | | | | 2012 | Encounter | [facility] | | | | | | [address] | | | | | | [place], [place] | | | | | | [address] | | | | | | [phone] | | | +--------+ + + + [...]
--- OUTSIDE RECORDS SUMMARY | ~2019-07-03 | XMS | Encounter Summary ---
Demographics + + + | Address | [address] | | | [place] [address] | + + + | Home Phone | | + + + | Preferred Language | Unknown | + + + | Marital Status | | + + + | Protestant Affiliation | Unknown | + + + | Race | Unknown | + + + | Ethnic Group | Unknown | + + + Author + + + | Author | [facility] | | | and Stivenana | + + + | Organization | [facility] | | | and Stivenana [...] [place], [place] | | | | | [address] | | + + + + + | [facility] | ECON | [address] | + | | | | [place], [place] | | | | | [address] | | + + + + + Care Team Providers + +------+ + | Care Blast Furnace Keeper Helper Name | Role | Phone | + +------+ + | Jocelin Haney | PCP | | + +------+ + Encounter Details +--------+ + + + + | Date | Type | Department | Care Team | Description | +--------+ + + + + | 12/08/ | Orders Only | [facility] | Nestor Mckenzie | | | 2014 | | [place]EL [place] | MD [address] | | | | | [address] | [address] | | | | | [address] [place], [place] | [place] [address] | | | | | [address] | [phone] | | | | | [phone] | | | +--------+ + + + [...] of 1-49% | | | stenosis. Right KEYBOARD OPERATOR: The right common femoral artery is patent [...] of 1-49% stenosis. | | | Left KEYBOARD OPERATOR: The left common femoral artery is patent [...] PS: 40.99 cm/s ROXANNA PS: 41.88 cm/s KEYBOARD OPERATOR | | | AC: 48 deg KEYBOARD OPERATOR AC: 43 deg KEYBOARD OPERATOR PS: 173.33 cm/s KEYBOARD OPERATOR PS: | | | 130.77 cm/s CYNTHIA [...] PS: 66.30 cm/s Pop PS: 73.39 cm/s SUPERVISOR PRINTING SHOP AC: 57 deg SUPERVISOR PRINTING SHOP | | | AC: 47 deg SUPERVISOR PRINTING SHOP PS: 59.45 cm/s SUPERVISOR PRINTING SHOP PS: 69.30 cm/s SFA PS: | | [...] AO mid: 1.32 cm | | | Public Services Librarian: LOYDA Authenticated by: Kayla Esteban MD Report | | | Date/Time: -- [id number]:[id number] | | + + + + + [...] with evidence of 1-49% | | stenosis.Right KEYBOARD OPERATOR: The right common femoral artery is patent [...] patent with evidence of 1-49% stenosis. Left KEYBOARD OPERATOR: The left common femoral artery is | [...] 1.99 cmAO mid: 1.32 cm | | Public Services Librarian: DHAuthenticated by: Kayla MARIEeport Date/Time: -- | | [id number]:26:26 IMPRESSION: 1. The abdominal aorta is borderline [...] cm/s | |ROXANNA PS: 41.88 cm/s | |KEYBOARD OPERATOR AC: 48 deg | |KEYBOARD OPERATOR AC: 43 deg | |KEYBOARD OPERATOR PS: 173.33 cm/s | |KEYBOARD OPERATOR PS: 130.77 cm/s | |CYNTHIA AC: 60 deg | |CYNTHIA PS: 220.97 cm/s | |CYTNHIA PS: 142.47 cm/s | |CYNTHIA PS: 165.86 [...] cm/s | |Pop PS: 73.39 cm/s | |SUPERVISOR PRINTING SHOP AC: 57 deg | |SUPERVISOR PRINTING SHOP AC: 47 deg | |SUPERVISOR PRINTING SHOP PS: 59.45 cm/s | |SUPERVISOR PRINTING SHOP PS: 69.30 cm/s | |SFA PS: 50.96 [...] |AO mid: 1.32 cm | | | |Public Services Librarian: LOYDA | |Authenticated by: Kayla Esteban MD | |Report Date/Time: -- [id number]:26:26 | | | |IMPRESSION: | |1. The [...]
--- OUTSIDE RECORDS SUMMARY | ~2019-07-03 | XMS | Encounter Summary ---
Demographics + + + | Address | [address] | | | [place] [address] | + + + | Home Phone | | + + + | Preferred Language | Unknown | + + + | Marital Status | | + + + | Bahai Affiliation | Unknown | + + + | Race | Unknown | + + + | Ethnic Group | Unknown | + + + Author + + + | Author | [facility] | | | and Stivenana | + + + | Organization | [facility] | | | and Stivenana [...] [place], [place] | | | | | [address] | | + + + + + | [facility] | ECON | [address] | + | | | | [place], [place] | | | | | [address] | | + + + + + Care Team Providers + +------+ + | Care Campus Receptionist Name | Role | Phone | + +------+ + | Jocelin Haney | PCP | | + +------+ + Encounter Details +--------+ + + + + | Date | Type | Department | Care Team | Description | +--------+ + + + + | 01/11/ | Orders Only | [facility] | Nestor Mckenzie | | | 2014 | | CARDIOLOGY [address] | MD [address] | | | | | [address] | Alicia Mccabe [address] | | | | | [address] [place] | [place] [address] | | | | | [address] | [phone] | | | | | [phone] | | | +--------+ + + + [...]
--- OUTSIDE RECORDS SUMMARY | ~2019-07-03 | XMS | Encounter Summary ---
Demographics + + + | Address | [address] | | | [place] [address] | + + + | Home Phone | | + + + | Preferred Language | Unknown | + + + | Marital Status | | + + + | Worship Affiliation | Unknown | + + + | Race | Unknown | + + + | Ethnic Group | Unknown | + + + Author + + + | Author | [facility] | | | and Stivenana | + + + | Organization | [facility] | | | and [...] [place], [place] | | | | | [address] | | + + + + + | [facility] | ECON | [address] | + | | | | [place], [place] | | | | | [address] | | + + + + + Care Team Providers + +------+ + | Care Library Circulation Technician Name | Role | Phone | [...] infection in female | | | | [place], [place] | [place], [place] | | | | | [address] | [address] | | | | | [phone] | | | +--------+ + + + [...] through Care Everywhere.Bladder Infecti on, Female (Adult) (Polish)Urine Culture (Polish)documented in this encounter Medications at Time of [...] + + + | [facility] | [address] | [place], [place] | [phone] | | HEALTHCARE LAB | | [address] | | + + + + + Urinalysis, Reflex Microscopic and/or Culture (01/03/2018 1:02 PM PDT) + + + + + + | Component | Value | Ref Range | Performed | Pathologist | | | | | At | Signature | + + + + + + | Color, | [place] ([place]) | Yellow, Light | [facility] | | | Urine | | Yellow [...] - 1.030 | [facility] | | | [place] | | | HEALTHCARE | | | [...] + + + | [facility] | [address] | [place], [place] | [phone] | | HEALTHCARE LAB | | [address] | | + + + + + documented in this encounter Visit Diagnoses + + | Diagnosis | + + | Dysuria - Primary | + + | Urinary tract infection in female | + + documented in this encounter"
[~2019-07-03 18:28] MED LIST changes: +FORTAMET500 MG PO; +LIPITOR10 MG PO; +LOSARTAN-HCTZ1 EAC2 PO
[2019-07-03] MEDS ORDERED: COZAAR100 MG PO (18:43)
[2019-07-03] MEDS ORDERED: HYDROCHLOROTH12.5 M1 PO (18:44)
--- NOTE | 2019-07-04 19:46 | EKG ---
[facility] [address] [place] [address] Signed Sinus bradycardia Nonspecific ST abnormality Abnormal QRS-T angle, consider primary T wave abnormality Abnormal ECG When compared with ECG of 17-OCT-2018 09:46, premature ventricular complexes are no longer present Confirmed by HORTENCIA JACOBSEN DO ([id number]) on 07/04/2019 7:46:02 PM Electronically Signed By: HORTENCIA JACOBSEN DO 07/04/19 1946 PATIENT NAME: KRISH DELGADO Electrocardiogram DATE OF : 38 PHYSICIAN: HORTENCIA JACOBSEN DO REPORT #: [id number] REPORT IS CONFIDENTIAL AND NOT TO BE RELEASED WITHOUT AUTHORIZATION
== END 2019-07-04 03:15 | disposition short-term general hospital (02) ==
LOC: ED 18:28
DX: I21.4 Non-ST elevation (NSTEMI) myocardial infarction (principal); I10 Essential (primary) hypertension; E11.9 Type 2 diabetes mellitus without complications; F32.9 Major depressive disorder, single episode, unspecified; F41.9 Anxiety disorder, unspecified; Z87.891 Personal history of nicotine dependence; Z88.8 Allergy status to other drugs, medicaments and biological substances; Z79.899 Other long term (current) drug therapy; Z79.84 Long term (current) use of oral hypoglycemic drugs
CPT/HCPCS: 71045; 80053; 83735; 84484; 85025; 93005; 93010; 96374; 99285-25; J1644

== ENCOUNTER 2019-07-31 22:46 | Emergency (ER) | payer MEDICARE, OTHER ==
[~2019-07-31] VITALS: Ht 152.4 cm; Wt 76.7 kg
[~2019-07-31 22:46] MED LIST changes: +COZAAR100 MG PO; +HYDROCHLOROTH12.5 M1 PO
--- OUTSIDE RECORDS SUMMARY | 2019-07-31 22:48 | XMS ---
PreManage Notification: KRISH DELGADO Security Registered Travel Nurse Events No recent Security Events currently on file CRITERIA MET - [facility] - 2 Visits in 30 Days CARE PROVIDERS There are no care providers on record at this time. Job has no Care Guidelines for this patient. Asif VISIT COUNT (12 MO.) [address] [facility] TOTAL 3 NOTE: Visits indicate total known visits. ED/UCC VISIT TRACKING (12 MO.) 07/31/2019 22:46 [facility] [place] TYPE: Emergency COMPLAINT: - HIGH BP 07/03/2019 18:28 [facility] [place] TYPE: Emergency COMPLAINT: - CHEST PAIN DIAGNOSES: - Essential (primary) hypertension - exterminator helper termite (current) use of oral hypoglycemic drugs - Chest pain, unspecified - 1 Type 2 diabetes mellitus without complications - Allergy status to oth drug/meds/biol subst status - Major depressive disorder, single episode, unspecified - Non-ST elevation (NSTEMI) myocardial infarction - Other terminal block assembler (current) drug therapy - Personal history of nicotine dependence - Anxiety disorder, unspecified 10/17/2018 09:31 [facility] [place] TYPE: Emergency COMPLAINT: - LEFT SIDED NUMBNESS HEADACHE DIAGNOSES: - Anxiety disorder, unspecified - Essential (primary) hypertension - Major depressive disorder, single episode, unspecified - Personal history of nicotine dependence - Allergy status to oth drug/meds/biol subst status - Other fpc (current) drug therapy - [facility] (current) use of oral hypoglycemic drugs INPATIENT VISIT TRACKING (12 MO.) 07/04/2019 07:38 [facility] [place] TYPE: Medical Surgical DIAGNOSES: 1. Non-ST elevation (NSTEMI) myocardial infarction 1. Non-ST elevation (NSTEMI) myocardial infarction 2. Acute posthemorrhagic anemia 3. 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 1 Type 2 diabetes mellitus without complications 5. Essential (primary) hypertension 6. Hyperlipidemia, unspecified 7. Bradycardia, unspecified 8. Hypomagnesemia 9. Other specified hypothyroidism 10. 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 Age-related osteoporosis w/o current pathological fracture 12. Anxiety disorder, unspecified 13. Obesity, unspecified 14. Personal history of nicotine dependence 15. Body mass index (BMI) 30.0-30.9, adult 16. Allergy status to oth drug/meds/biol subst status 17. exterminator helper termite (current) use of oral hypoglycemic drugs [email or web address]
[2019-07-31] MEDS ORDERED: METOPROLOL TART25 MG PO (23:18)
--- NOTE | 2019-08-01 17:09 | EKG ---
[facility] [address] [place] [address] Signed Sinus bradycardia with sinus arrhythmia Cannot rule out Anterior infarct , age undetermined T wave abnormality, consider inferior ischemia Abnormal ECG When compared with ECG of 03-JUL-2019 18:32, Non-specific change in ST segment in Inferior leads T wave inversion now evident in Inferior leads T wave inversion now evident in Lateral leads Confirmed by JOSUE DO MD ([id number]) on 08/01/2019 5:09:48 PM Electronically Signed By: JOSUE DO MD 08/01/19 1709 PATIENT NAME: KRISH DELGADO Electrocardiogram DATE OF : 38 PHYSICIAN: JOSUE DO MD REPORT #: [id number] REPORT IS CONFIDENTIAL AND NOT TO BE RELEASED WITHOUT AUTHORIZATION
== END 2019-08-01 01:14 | disposition home or self-care (01) ==
LOC: ED 22:46
DX: R00.1 Bradycardia, unspecified (principal); F32.9 Major depressive disorder, single episode, unspecified; F41.9 Anxiety disorder, unspecified; I10 Essential (primary) hypertension; E11.9 Type 2 diabetes mellitus without complications; I25.2 Old myocardial infarction; Z87.891 Personal history of nicotine dependence; Z79.899 Other long term (current) drug therapy
CPT/HCPCS: 80053; 81001; 83735; 84484; 85025; 93005; 93010; 99284-25

== ENCOUNTER 2020-11-09 09:11 | Emergency (ER) | payer MEDICARE, OTHER ==
[~2020-11-09] VITALS: Ht 152.4 cm; Wt 76.7 kg
[~2020-11-09 09:11] MED LIST changes: +METOPROLOL TART25 MG PO
[2020-11-09] MEDS ORDERED: NIACIN1000 MG PO (09:33)
--- NOTE | 2020-11-11 12:32 | EKG ---
[facility] [address] [facility] [place] [address] Signed Sinus bradycardia Cannot rule out Anterior infarct (cited on or before 31-JUL-2019) Abnormal ECG When compared with ECG of 31-JUL-2019 23:26, T wave inversion no longer evident in Inferior leads T wave inversion no longer evident in Lateral leads Confirmed by HORTENCIA JAOCBSEN DO ([id number]) on 11/11/2020 12:32:10 PM Electronically Signed By: HORTENCIA JACOBSEN DO 11/11/20 1232 PATIENT NAME: KRISH DELGADO Electrocardiogram DATE OF : 38 PHYSICIAN: HORTENCIA JACOBSEN DO REPORT #: [id number] REPORT IS CONFIDENTIAL AND NOT TO BE RELEASED WITHOUT AUTHORIZATION
== END 2020-11-09 12:00 | disposition home or self-care (01) ==
LOC: ED 09:11
DX: R20.2 Paresthesia of skin (principal); I10 Essential (primary) hypertension; M10.9 Gout, unspecified; E11.9 Type 2 diabetes mellitus without complications; I25.2 Old myocardial infarction; Z88.8 Allergy status to other drugs, medicaments and biological substances; Z79.899 Other long term (current) drug therapy; Z79.84 Long term (current) use of oral hypoglycemic drugs
CPT/HCPCS: 70450; 80053; 84484; 85025; 93005; 93010; 99284-25

== ENCOUNTER 2021-02-10 07:45 | Day surgery (SDC) | payer MEDICARE, OTHER ==
[~2021-02-10] VITALS: Ht 152.4 cm; Wt 66.0 kg
[~2021-02-10 07:45] MED LIST changes: +NIACIN1000 MG PO
[2021-02-10] MEDS ORDERED: CALCIUM500 MG (08:17)
[2021-02-10] MEDS ORDERED: LIPITOR20 MG PO (08:17)
[2021-02-10] MEDS ORDERED: ASPIRIN81 MG PO (08:28)
--- NOTE | 2021-02-10 08:49 | NUR ---
0845-GLUCOSE LEVEL OF 112. PATIENT ANSWERED QUESTIONS WITH EYES CLOSED REPORTS "DIDN'T SLEEP LAST NIGHT" HR 45-50 PATIENT REPORTS "EVER SINCE I HAD MY HEART SURGERY" BP'S RANGING 150-160'S SPEEDER OPERATOR NOTIFIED.
--- NOTE | 2021-02-10 09:29 | NUR ---
02/10/21 0929 Swati Couch 0926- PT ARRIVES TO PACU REACTIVE TO STIMULI. PT REPORTS NO PAIN OR NAUSEA AND INSTANTLY FALLS BACK TO SLEEP WHEN NOT BEING TALKED TO. RESP EVEN AND UNLABORED. OXYGEN SAT MID TO HIGH 90'S ON 3L VIA NC.
--- NOTE | 2021-02-11 08:39 | OR ---
[facility] [address] [place], [place] [address] Signed DATE OF OPERATION: 02/10/2021 SURGEON: Sepideh Fournier MD PREOPERATIVE DIAGNOSES: 1. Colonoscopy [place] [address] Jimenez at age 66, diverticulosis. 2. Patient denies family history of colon polyps and cancer. POSTOPERATIVE DIAGNOSES: 1. Pandiverticulosis. 2. Tortuous sigmoid colon. PROCEDURE: Colonoscopy without biopsy. ESTIMATED BLOOD LOSS: None. INDICATIONS: Norma is an 80-year-old female, whom we had been asked to see me in the office for what initially we thought was a followup screening colonoscopy. She actually had screening colonoscopy back at age 66 [address] Jimenez. She had diverticulosis at that time. She denies a family history of colon polyps this morning. She initially told me there was no lower GI complaints. However today she told me she has had a change in bowel habits with increased constipation. She said it is hard to get the stool to come out, but once it starts to come out, then she is fine. She was unable to come last year during the COVID pandemic. She did undergo her open-heart surgery last year and she has come through that very nicely. In the office I had given her a pamphlet on colonoscopy. She seemed to recall that quite well. There is risk including, but not limited to gas bloating, crampy abdominal pain, bleeding, perforation requiring surgery, and missed diagnosis. We also reviewed the need for IV conscious sedation. She had expressed understanding and wished to proceed. PROCEDURE NOTE: Norma was taken into our endoscopy suite and placed in the left lateral decubitus position. She was given IV sedation with 5 mg of Versed and 100 mcg of fentanyl. A digital rectal exam was performed and this was unremarkable. She has good sphincter tone. No obvious stricture or mass. The adult colonoscope was introduced and advanced under direct visualization of the camera. It took a few minutes to get through her tortuous sigmoid colon. A little extra sedation abdominal compression was helpful in Electronically Signed By: SEPIDEH FOURNIER MD 02/11/21 0839 PATIENT NAME: NORMA DELGADO OPERATIVE REPORT DATE OF : 38 REPORT #: [id number] PHYSICIAN: SEPIDEH FOURNIER MD PCP: JOCELIN SAM PAC REPORT IS CONFIDENTIAL AND NOT TO BE RELEASED WITHOUT AUTHORIZATION [facility] [address] [place], [place] [address] Signed that regard. She does have pandiverticulosis. They were moderate in size and moderate in number, and scattered about. Of course, the greatest concentration is in the sigmoid colon. We had made our way around to the cecum itself. She had some stool in her appendiceal orifice. We irrigated that with our scope. The scope was then slowly withdrawn. Her prep was actually quite good. We could easily see the ileocecal valve. We had taken pictures throughout for photodocumentation. Again, she has a pandiverticulosis. No polyps. She had this tortuous sigmoid colon. The rectum was unremarkable. Upon retroflexion of scope, we really could not see any pathology associated with the anal canal. After this, the gas was suctioned out and the colonoscope removed. Norma tolerated the procedure quite well. RECOMMENDATIONS: Norma can follow up as needed for future colonoscopies. MD SHAYLA Wraren/JAVEDL /[id number] cc: MD Jocelin Warren PA-C Copies: SEPIDEH FOURNIER MD, ERIKA PAC ~ Electronically Signed By: SEPIDEH FOURNIER MD 02/11/21 0839 PATIENT NAME: NORMA DELGADO OPERATIVE REPORT DATE OF : 38 REPORT #: [id number] PHYSICIAN: SEPIDEH FOURNIER MD PCP: JOCELIN SAM REPORT IS CONFIDENTIAL AND NOT TO BE RELEASED WITHOUT AUTHORIZATION
== END 2021-02-10 10:50 | disposition home or self-care (01) ==
LOC: DS 07:45 → OPS 07:45 → DS 09:00 → OPS 09:00 → DS 03-01 06:45
PROVIDERS: ATTEND Colon & Rectal Surgery
PROC: 0DJD8ZZ Inspection of Lower Intestinal Tract, Via Natural or Artificial Opening Endoscopic (ICD-10-PCS; principal; 2021-02-10 09:00)
DX: K59.00 Constipation, unspecified (principal); K57.30 Diverticulosis of large intestine without perforation or abscess without bleeding; K63.89 Other specified diseases of intestine; Z83.71 Family history of colonic polyps; E11.9 Type 2 diabetes mellitus without complications; E03.9 Hypothyroidism, unspecified; E78.5 Hyperlipidemia, unspecified; E05.00 Thyrotoxicosis with diffuse goiter without thyrotoxic crisis or storm; Z95.1 Presence of aortocoronary bypass graft; Z87.891 Personal history of nicotine dependence; Z79.82 Long term (current) use of aspirin; Z79.84 Long term (current) use of oral hypoglycemic drugs
CPT/HCPCS: 99153; G0500; J2250; J3010; J7121

== ENCOUNTER 2021-08-24 07:06 | Emergency (ER) | payer MEDICARE, OTHER ==
[~2021-08-24] VITALS: Ht 152.4 cm; Wt 65.8 kg
[~2021-08-24 07:06] MED LIST changes: +ASPIRIN81 MG PO; +CALCIUM500 MG; +LIPITOR20 MG PO
--- NOTE | 2021-08-24 17:26 | EKG ---
[facility] [address] [facility] [place], [place] [address] Signed Normal sinus rhythm Nonspecific ST abnormality Abnormal ECG No previous ECGs available Confirmed by JOSUE DO MD ([id number]) on 08/24/2021 5:26:36 PM Electronically Signed By: JOSUE DO MD 08/24/21 1726 PATIENT NAME: KRISH DELGADO Electrocardiogram DATE OF : 38 PHYSICIAN: JOSUE DO MD REPORT #: [id number] REPORT IS CONFIDENTIAL AND NOT TO BE RELEASED WITHOUT AUTHORIZATION
== END 2021-08-24 09:20 | disposition home or self-care (01) ==
LOC: ED 07:06
DX: M25.511 Pain in right shoulder (principal); M25.512 Pain in left shoulder; R07.81 Pleurodynia; T50.995A Adverse effect of other drugs, medicaments and biological substances, initial encounter; I10 Essential (primary) hypertension; E05.00 Thyrotoxicosis with diffuse goiter without thyrotoxic crisis or storm; M10.9 Gout, unspecified; E11.9 Type 2 diabetes mellitus without complications; I25.2 Old myocardial infarction; Z87.891 Personal history of nicotine dependence; Z88.8 Allergy status to other drugs, medicaments and biological substances; Z79.82 Long term (current) use of aspirin; Z79.899 Other long term (current) drug therapy; Z20.822 Contact with and (suspected) exposure to COVID-19
CPT/HCPCS: 93005; 93010; 99283-25; A9270; C9803; U0003

== ENCOUNTER 2022-10-14 13:35 | Observation (INO) | payer MEDICARE, OTHER ==
[~2022-10-14] VITALS: Ht 152.4 cm; Wt 71.7 kg
[2022-10-14] MEDS ORDERED: VENTOLIN HFA18 GM INH (14:30)
[2022-10-14] MEDS ORDERED: AZITHROMYCIN250 MG PO (14:31)
--- NOTE | 2022-10-14 20:10 | NUR ---
pt ARRIVED TO [facility] FLOOR AT THIS TIME FROM ED STRETCHER WITH ED RN ALEIDA. pt AWAKE AND ORIENTED, VS COLLECTED. BP ELEVATED, WILL MONITOR. 2LNC IN PLACE, NOT CHRONIC PER REPORT. pt REPORTS TOLERABLE 4/10 PAIN R/T "SINUS CONGESTION". DENIES NAUSEA. BUSINESS COORDINATOR ELAN IN ROOM TO COMPLETE ADMISSION.
[2022-10-14 20:13] VITALS: BP 181/45
--- NOTE | 2022-10-14 20:45 | NUR ---
ASSISTED PT UP TO BSC, TO VOID. INDEPENDENT IN TRANSFER, INDEPENDENT IN CLEANING AND BACK TO BED. SPOT CHECK O2, SAYS 94 ON 2L WHILE UP.
--- NOTE | 2022-10-14 21:05 | NUR ---
BLOOD SUGAR 117, PT WAS CONCERNED DUE TO NOT EATING SINCE 06
--- NOTE | 2022-10-14 21:15 | NUR ---
ASSESSMENT COMPLETE, SCHEDULED MEDS GIVEN-SEE EMAR. IV SITE WNL, FLUSHES WELL AND IV ABX INFUSING DIRECTED. pt DENIES ADDITIONAL NEEDS OR CONCERNS. 2LNC IN PLACE. WILL MONITOR.
[2022-10-14 21:42] VITALS: BP 160/41
--- NOTE | 2022-10-14 21:45 | NUR ---
BP RECHECKED, NOW WNL. DOCUMENTED.
[2022-10-14] MEDS ORDERED: MUCINEX1200 MG PO (21:54)
--- NOTE | 2022-10-14 22:35 | NUR ---
ASSISTED PT TO BEDSIDE COMMODE. PT AMBULATED WELL.
--- NOTE | 2022-10-15 00:01 | NUR ---
pt HEARD CALLING OUT FOR HELP, THIS RN MET pt AT ROOM ENTRANCE. pt REPORTS CALL LIGHT NOT WORKING, pt ASSISTED SBA TO BSC, VOIDED 800MLS. pt STATES, " I TRY AND KEEP MYSELF HYDRATED". FRESH WATER ALSO PROVIDED PER pt REQUEST. pt BACK IN BED. NO ADDITIONAL NEEDS, CALL LIGHT IN REACH AND FUNCTIONAL.
--- NOTE | 2022-10-15 00:54 | NUR ---
2LNC IN PLACE, RR EVEN AND UNLABORED. NO DISTRESS NOTED. CALL LIGHT IN REACH.
[2022-10-15 02:55] VITALS: BP 172/52
--- NOTE | 2022-10-15 03:12 | NUR ---
CALL LIGHT ANSWERED, pt UP SBA TO BSC. VOIDED AND BACK IN BED. NO CHANGES TO ASSESSMENT. pt DENIES NAUSEA AND NO REPORT OF PAIN. CRACKLES NOTED IN LLL AND SOMEWHAT COURSE. NO SOB NOTED BY pt WHEN ASKED, pt REPORTS INTER. COUGH WITH THIN CLEAR SPUTUM. SCHEDULED IV ABX AND PO MED GIVEN-SEE EMAR. FRESH WATER PROVIDED, CALL LIGHT IN REACH.
[2022-10-15 06:21] VITALS: BP 164/41
--- NOTE | 2022-10-15 06:30 | NUR ---
VSS, FRESH WATER PROVIDED. SCHEDULED THYROID MEDICATION PROVIDED. pt FOUND IN BED RESTING IN BED WITH EYES CLOSED, AWOKE TO VOICE. 2LNC FOUND OFF OF FACE, SPO2 88-89%, 2LNC BACK IN PLACE AND SUSTAINING IN MID 90'S. CALL LIGHT IN REACH.
[2022-10-15] MEDS ORDERED: LOSARTAN POTASS25 MG PO (07:22)
[2022-10-15] MEDS ORDERED: ROSUVASTATIN CAL5 MG PO (07:26)
--- NOTE | 2022-10-15 08:05 | NUR ---
PT RESTING EYES CLOSED AT TIME OF SHIFT REPORT. BREATHING EVEN AND UNLABORED CALL LIGHT AND NEEDED ITEMS AT BEDSIDE.
[2022-10-15] MEDS ORDERED: LEVOTHYROXINE75 MCG PO (09:41)
[2022-10-15 09:58] VITALS: BP 144/44
--- NOTE | 2022-10-15 10:02 | NUR ---
PATIENT IN BED AFTER MEAL. VITALS AND I/O'S COMPLETED, PATIENT HAS NO FURTHER REQUESTS AT THIS TIME. ICE WATER GIVEN. CALL LIGHT WITHIN REACH.
--- NOTE | 2022-10-15 10:37 | NUR ---
PT TOLERATES MOST OF MORNING MEAL. SATS HIGH 90'S TITRATED 02 TO 1 LPM CONTINUES IN THE 90'S. RESTING IN BED USES TRUMPET INDPEPENDANLTY COUGHING UP SPUTUM.
--- NOTE | 2022-10-15 11:21 | NUR ---
PT RESTING IN BED TALKING ON THE PHONE DENIES NEEDS AT THIS TIME
[2022-10-15] MEDS ORDERED: AMOX TR-K CLV1 EAC1 PO (12:59)
[2022-10-15] MEDS ORDERED: PSEUDOEPHEDRINE60 MG PO (13:00)
[2022-10-15] MEDS ORDERED: FLUTICASONE PRO16 GM NAS (13:01)
[2022-10-15 13:46] VITALS: BP 151/58
--- NOTE | 2022-10-15 13:51 | NUR ---
PATIENT IN CHAIR VITALS COMPLETED. PATIENT DRESSED AND READY FOR DISCHARGE. CALL LIGHT WITHIN REACH.
--- NOTE | 2022-10-15 16:43 | EKG ---
[facility] [address] [facility] [place] [address] Signed Normal sinus rhythm Nonspecific ST abnormality Abnormal ECG When compared with ECG of 24-AUG-2021 07:24, Nonspecific T wave abnormality, improved in Inferior leads Confirmed by JOSUE DO MD ([id number]) on 10/15/2022 4:43:02 PM Electronically Signed By: JOSUE DO MD 10/15/22 1643 PATIENT NAME: SANDYKRISH MARAVILLA Electrocardiogram DATE OF : 38 PHYSICIAN: JOSUE DO MD REPORT #: [id number] REPORT IS CONFIDENTIAL AND NOT TO BE RELEASED WITHOUT AUTHORIZATION
== END 2022-10-15 14:10 | disposition home or self-care (01) ==
LOC: ED 13:35 → MS 13:38
PROVIDERS: ADMIT Internal Medicine; ATTEND Internal Medicine
DX: J18.9 Pneumonia, unspecified organism (principal); J96.01 Acute respiratory failure with hypoxia; J01.40 Acute pansinusitis, unspecified; H74.8X9 Other specified disorders of middle ear and mastoid, unspecified ear; I25.10 Atherosclerotic heart disease of native coronary artery without angina pectoris; I10 Essential (primary) hypertension; E03.2 Hypothyroidism due to medicaments and other exogenous substances; E78.5 Hyperlipidemia, unspecified; Z66 Do not resuscitate; Z88.8 Allergy status to other drugs, medicaments and biological substances; Z87.891 Personal history of nicotine dependence; Z79.82 Long term (current) use of aspirin; Z79.890 Hormone replacement therapy; Z79.899 Other long term (current) drug therapy; Z20.822 Contact with and (suspected) exposure to COVID-19
CPT/HCPCS: 36415; 71045; 80053; 83605; 83880; 84484; 85025; 93005; 93010; 94640; 94667; 94668; 94760; 94761; A9270; C9803; J0295; J0456; J0696; J1650; J7060; U0003

== ENCOUNTER 2022-12-20 12:09 | Inpatient (IN) | payer MEDICARE, OTHER ==
[~2022-12-20] VITALS: Ht 152.4 cm; Wt 66.8 kg
--- OUTSIDE RECORDS SUMMARY | ~2022-12-20 | XMS | Continuity of Care Document ---
Demographics + + + | Address | [address] | | | [place] [address] | + + + | Preferred Language | Unknown | + + + | Marital Status | | + + + | Buddhist Affiliation | Unknown | + + + | Race | White | + + + | Ethnic Group | Not or | + + + Author + + + | Author | [place] | + + + | Organization | [facility] | + + + | Address | [address] | | | [place] [address] | + + + | Phone | | + + + Care Team Providers + + + + | Care Acetylene Burner Name | Role | Phone | + + + + Unavailable | Unavailable | + + + + Unavailable | Unavailable | + + + + Unavailable | Unavailable | + + + + Allergies and Intolerances + + + + + | date | description | facility | type | + + + + + | (no date) | Lisinopril | [facility] | (unknown) | | | | Hospital | | + + + + + | (no date) | Mild | [facility] | (unknown) | | | | Hospital | | + + + + + | (no date) | Lisinopril | [facility] | (unknown) | | | | Hospital | | + + + + + | (no date) | Lisinopril | [facility] | (unknown) | | | | Hospital | | + + + + + | (no date) | lisinopril | [facility] | (unknown) | + + + + + Encounters No information. Functional Status No information. Immunizations No information. Medications + + + + | date | description | facility | + + + + | 2022-10-15 00:00 | PSEUDOEPHEDRINE HCL | [facility] | + + + + | 2022-10-15 00:00 | OLOPATADINE HCL 0.1% | [facility] | + + + + | 2022-10-15 00:00 | FLUTICASONE PROPIONATE 50 | [facility] | | | MCG | | + + + + | 2022-10-15 00:00 | ALLOPURINOL | [facility] | + + + + | 2022-10-15 00:00 | CALCIUM CARBONATE | [facility] | + + + + | 2022-10-15 00:00 | AMLODIPINE BESYLATE | [facility] | + + + + | 2022-10-15 00:00 | AZITHROMYCIN | [facility] | + + + + | 2022-10-15 00:00 | FLUOXETINE HCL | [facility] | + + + + | 2022-10-15 00:00 | SIMVASTATIN | [facility] | + + + + | 2022-10-15 00:00 | ASPIRIN | [facility] | + + + + | 2022-10-15 00:00 | AMOXICILLIN/POTASSIUM CLAV | [facility] | | | | | + + + + | 2022-10-15 00:00 | ATORVASTATIN | [facility] | + + + + | 2022-10-15 00:00 | SITAGLIPTIN PHOSPHATE | [facility] | + + + + | 2022-10-15 00:00 | ALBUTEROL SULFATE | [facility] | + + + + | 2022-10-15 00:00 | Rosuvastatin Calcium | [facility] | + + + + | 2022-10-15 00:00 | GUAIFENESIN | [facility] | + + + + | 2022-10-15 00:00 | LEVOTHYROXINE SODIUM | [facility] | + + + + | 2022-10-15 00:00 | | [facility] | | | LOSARTAN/HYDROCHLOROTHIAZID | | | | E | | + + + + | 2022-10-15 00:00 | LOSARTAN POTASSIUM | [facility] | + + + + | 2022-10-15 00:00 | LOSARTAN POTASSIUM | [facility] | + + + + Problems + + + + | date | description | facility | + + + + | 2014-10-12 00:00 | Anxiety | [facility] | + + + + | 2014-10-12 00:00 | Hypesthesia | [facility] | + + + + | 2019-07-04 00:00 | Non-ST elevation | [facility] | | | myocardial infarction | | | | (NSTEMI) | | + + + + | 2019-08-01 00:00 | Bradycardia | [facility] | + + + + | 2021-08-24 00:00 | Side effect of medication | [facility] | + + + + | 2022-10-12 10:12 | OTHER DISORDERS OF LUNG | [facility] | + + + + | 2022-10-12 10:12 | COUGH, UNSPECIFIED | [facility] | + + + + | 2022-10-14 00:00 | Pneumonia | [facility] | + + + + | 2022-10-14 00:00 | Respiratory failure with | [facility] | | | hypoxia | | + + + + | 2022-10-14 13:38 | HYPOTHYROIDISM DUE TO MEDS | [facility] | | | AND OTH EXOGENOUS SUBST | | + + + + | 2022-10-14 13:38 | HYPERLIPIDEMIA, | [facility] | | | UNSPECIFIED | | + + + + | 2022-10-14 13:38 | OTH DISRD OF MIDDLE EAR | [facility] | | | AND MASTOID, UNSPECIFIED E | | + + + + | 2022-10-14 13:38 | Essential (primary) | [facility] | | | hypertension | | + + + + | 2022-10-14 13:38 | ATHSCL HEART DISEASE OF | [facility] | | | [place] CORONARY ARTERY W/O | | + + + + | 2022-10-14 13:38 | ACUTE PANSINUSITIS, | [facility] | | | UNSPECIFIED | | + + + + | 2022-10-14 13:38 | PNEUMONIA, UNSPECIFIED | [facility] | | | ORGANISM | | + + + + | 2022-10-14 13:38 | ACUTE RESPIRATORY FAILURE | [facility] | | | WITH HYPOXIA | | + + + + | 2022-10-14 13:38 | Do not resuscitate status | [facility] | | | (Z66) | | + + + + | 2022-10-14 13:38 | PRISON (CURRENT) USE OF | [facility] | | | ASPIRIN | | + + + + | 2022-10-14 13:38 | HORMONE REPLACEMENT | [facility] | | | THERAPY | | + + + + | 2022-10-14 13:38 | OTHER SAP PROJECT MANAGER (CURRENT) | [facility] | | | DRUG THERAPY | | + + + + | 2022-10-14 13:38 | PERSONAL HISTORY OF | [facility] | | | NICOTINE DEPENDENCE | | + + + + | 2022-10-14 13:38 | ALLERGY STATUS TO OTH | [facility] | | | DRUG/MEDS/BIOL SUBST STATUS | | | | | | + + + + Procedures No information. Results/Labs No information. Social History No information. Vital Signs + + + +---------+ | date | measurement | value | units | + + + +---------+ | 2022-10-14 00:00 | BMI | 30.9 | kg/m2 | + + + +---------+ | 2022-10-14 00:00 | height_metric | 152.4 | cm | + + + +---------+ | 2022-10-14 00:00 | height_standard | 60 | in | + + + +---------+ | 2022-10-14 00:00 | weight_metric | 71.7 | kg | + + + +---------+ | 2022-10-14 00:00 | weight_standard | 158.07 | lb | + + + +---------+ | 2022-10-15 00:00 | BP_diastolic | 58 | mmHg | + + + +---------+ | 2022-10-15 00:00 | BP_systolic | 151 | mmHg | + + + +---------+ | 2022-10-15 00:00 | heart_rate | 128 | /min | + + + +---------+ | 2022-10-15 00:00 | o2_saturation | 92 | % | + + + +---------+ | 2022-10-15 00:00 | respiration_rate | 19 | /min | + + + +---------+ | 2022-10-15 00:00 | temperature_metric | 36.33 | C | | | | | | + + + +---------+ | 2022-10-15 00:00 | | 97.4 | F | | | temperature_standar | | | | | d | | | + + + +---------+"
--- OUTSIDE RECORDS SUMMARY | ~2022-12-20 | XMS | Continuity of Care Document ---
Demographics + + + | Address | [address] | | | [place] [address] | + + + | Preferred Language | Unknown | + + + | Marital Status | | + + + | Caodaism Affiliation | Unknown | + + + | Race | White | + + + | Ethnic Group | Not or | + + + Author + + + | Author | [place] | + + + | Organization | [place] | + + + | Address | [address] | | | [place] [address] | + + + | Phone | | + + + Care Team Providers + + + + | Care Management Services Technician Name | Role | Phone | + + + + Unavailable | Unavailable | + + + + Unavailable | Unavailable | + + + + Unavailable | Unavailable | + + + + Allergies and Intolerances + + + + + | date | description | facility | type | + + + + + | (no date) | Lisinopril | [facility] (unknown) | | | | Hospital | | + + + + + | (no date) | Mild | [facility] | (unknown) | | | | Hospital | | + + + + + | (no date) | Lisinopril | [facility] | (unknown) | | | | Hospital | | + + + + + | (no date) | Lisinopril | [facility] | (unknown) | | | | Hospital | | + + + + + Encounters No information. Functional Status No information. Immunizations No information. Medications + + + + | date | description | facility | + + + + | 2022-10-15 00:00 | PSEUDOEPHEDRINE HCL | [facility] | + + + + | 2022-10-15 00:00 | OLOPATADINE HCL 0.1% | [facility] | + + + + | 2022-10-15 00:00 | FLUTICASONE PROPIONATE 50 | [facility] | | | MCG | | + + + + | 2022-10-15 00:00 | ALLOPURINOL | [facility] | + + + + | 2022-10-15 00:00 | CALCIUM CARBONATE | [facility] | + + + + | 2022-10-15 00:00 | AMLODIPINE BESYLATE | [facility] | + + + + | 2022-10-15 00:00 | AZITHROMYCIN | [facility] | + + + + | 2022-10-15 00:00 | FLUOXETINE HCL | [facility] | + + + + | 2022-10-15 00:00 | SIMVASTATIN | [facility] | + + + + | 2022-10-15 00:00 | ASPIRIN | [facility] | + + + + | 2022-10-15 00:00 | AMOXICILLIN/POTASSIUM CLAV | [facility] | | | | | + + + + | 2022-10-15 00:00 | ATORVASTATIN | [facility] | + + + + | 2022-10-15 00:00 | SITAGLIPTIN PHOSPHATE | [facility] | + + + + | 2022-10-15 00:00 | ALBUTEROL SULFATE | [facility] | + + + + | 2022-10-15 00:00 | Rosuvastatin Calcium | [facility] | + + + + | 2022-10-15 00:00 | GUAIFENESIN | [facility] | + + + + | 2022-10-15 00:00 | LEVOTHYROXINE SODIUM | [facility] | + + + + | 2022-10-15 00:00 | | [facility] | | | LOSARTAN/HYDROCHLOROTHIAZID | | | | E | | + + + + | 2022-10-15 00:00 | LOSARTAN POTASSIUM | [facility] | + + + + | 2022-10-15 00:00 | LOSARTAN POTASSIUM | [facility] | + + + + Problems + + + + | date | description | facility | + + + + | 2014-10-12 00:00 | Anxiety | [facility] | + + + + | 2014-10-12 00:00 | Hypesthesia | [facility] | + + + + | 2019-07-04 00:00 | Non-ST elevation | [facility] | | | myocardial infarction | | | | (NSTEMI) | | + + + + | 2019-08-01 00:00 | Bradycardia | [facility] | + + + + | 2021-08-24 00:00 | Side effect of medication | [facility] | + + + + | 2022-10-12 10:12 | OTHER DISORDERS OF LUNG | [facility] | + + + + | 2022-10-12 10:12 | COUGH, UNSPECIFIED | [facility] | + + + + | 2022-10-14 00:00 | Pneumonia | [facility] | + + + + | 2022-10-14 00:00 | Respiratory failure with | [facility] | | | hypoxia | | + [...] DISEASE OF | [facility] | | | [place] 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
--- OUTSIDE RECORDS SUMMARY | ~2022-12-20 | XMS | Continuity of Care Document ---
Demographics + + + | Address | [address] | | | [place] [address] | + + + | Preferred Language | Unknown | + + + | Marital Status | | + + + | Congregation Affiliation | Unknown | + + + | Race | White | + + + | Ethnic Group | Not or | + + + Author + + + | Author | [place] | + + + | Organization | [place] | + + + | Address | [address] | | | [place] [address] | + + + | Phone | | + + + Care Team Providers + + + + | Care Machine Feeder Floorperson Name | Role | Phone | + + + + Unavailable | Unavailable | + + + + Unavailable | Unavailable | + + + + Unavailable | Unavailable | + + + + Allergies and Intolerances + + + + + | date | description | facility | type | + + + + + | (no date) | Lisinopril | [facility] | (unknown) | | | | Hospital | | + + + + + | (no date) | Mild | [facility] | (unknown) | | | | Hospital | | + + + + + | (no date) | Lisinopril | [facility] | (unknown) | | | | Hospital | | + + + + + | (no date) | Lisinopril | [facility] | (unknown) | | | | Hospital | | + + + + + Encounters No information. Functional Status No information. Immunizations No information. Medications + + + + | date | description | facility | + + + + | 2022-10-15 00:00 | PSEUDOEPHEDRINE HCL | [facility] | + + + + | 2022-10-15 00:00 | OLOPATADINE HCL 0.1% | [facility] | + + + + | 2022-10-15 00:00 | FLUTICASONE PROPIONATE 50 | [facility] | | | MCG | | + + + + | 2022-10-15 00:00 | ALLOPURINOL | [facility] | + + + + | 2022-10-15 00:00 | CALCIUM CARBONATE | [facility] | + + + + | 2022-10-15 00:00 | AMLODIPINE BESYLATE | [facility] | + + + + | 2022-10-15 00:00 | AZITHROMYCIN | [facility] | + + + + | 2022-10-15 00:00 | FLUOXETINE HCL | [facility] | + + + + | 2022-10-15 00:00 | SIMVASTATIN | [facility] | + + + + | 2022-10-15 00:00 | ASPIRIN | [facility] | + + + + | 2022-10-15 00:00 | AMOXICILLIN/POTASSIUM CLAV | [facility] | | | | | + + + + | 2022-10-15 00:00 | ATORVASTATIN | [facility] | + + + + | 2022-10-15 00:00 | SITAGLIPTIN PHOSPHATE | [facility] | + + + + | 2022-10-15 00:00 | ALBUTEROL SULFATE | [facility] | + + + + | 2022-10-15 00:00 | Rosuvastatin Calcium | [facility] | + + + + | 2022-10-15 00:00 | GUAIFENESIN | [facility] | + + + + | 2022-10-15 00:00 | LEVOTHYROXINE SODIUM | [facility] | + + + + | 2022-10-15 00:00 | | [facility] | | | LOSARTAN/HYDROCHLOROTHIAZID | | | | E | | + + + + | 2022-10-15 00:00 | LOSARTAN POTASSIUM | [facility] | + + + + | 2022-10-15 00:00 | LOSARTAN POTASSIUM | [facility] | + + + + Problems + + + + | date | description | facility | + + + + | 2014-10-12 00:00 | Anxiety | [facility] | + + + + | 2014-10-12 00:00 | Hypesthesia | [facility] | + + + + | 2019-07-04 00:00 | Non-ST elevation | [facility] | | | myocardial infarction | | | | (NSTEMI) | | + + + + | 2019-08-01 00:00 | Bradycardia | [facility] | + + + + | 2021-08-24 00:00 | Side effect of medication | [facility] | + + + + | 2022-10-12 10:12 | OTHER DISORDERS OF LUNG | [facility] | + + + + | 2022-10-12 10:12 | COUGH, UNSPECIFIED | [facility] | + + + + | 2022-10-14 00:00 | Pneumonia | [facility] | + + + + | 2022-10-14 00:00 | Respiratory failure with | [facility] | | | hypoxia | | + [...] DISEASE OF | [facility] | | | [place] CORONARY ARTERY W/O | | + + [...] + + + | 2022-10-14 13:38 | TRUCKLOAD OWNER OPERATOR (CURRENT) USE OF | [facility] | | | ASPIRIN | | + + + + | 2022-10-14 13:38 | HORMONE REPLACEMENT | [facility] | | | THERAPY | | + + + + | 2022-10-14 13:38 | OTHER TRUCKLOAD OWNER OPERATOR (CURRENT) | [facility] | | | DRUG [...]
[~2022-12-20 12:09] MED LIST changes: +AMOX TR-K CLV1 EAC1 PO; +AZITHROMYCIN250 MG PO; -CALCIUM500 MG; +CALCIUM500 MG PO; +FLUTICASONE PRO16 GM NAS; +LEVOTHYROXINE75 MCG PO; +LOSARTAN POTASS25 MG PO; +MUCINEX1200 MG PO; +PSEUDOEPHEDRINE60 MG PO; +ROSUVASTATIN CAL5 MG PO; +VENTOLIN HFA18 GM INH
--- OUTSIDE RECORDS SUMMARY | 2022-12-20 12:12 | XMS ---
PreManage Notification: KRISH DELGADO Security Supervisor Inspection Department Events No recent Security Events currently on file CRITERIA MET - [facility] - 2 Visits in 30 Days CARE PROVIDERS PABLO SAM Physician Food Production Worker 08/04/2019-Current PHONE: Unknown Job has no Care Guidelines for this patient. Asif VISIT COUNT (12 MO.) [address] [place] [address] Angela Hernandez [address] [place] [address] TOTAL 3 NOTE: Visits indicate total known visits. ED/UCC VISIT TRACKING (12 MO.) 12/20/2022 12:[address] [facility] [place] TYPE: Emergency COMPLAINT: - ALTERED LOC 11/27/2022 12:45 [facility] Angela SIDDIQUI TYPE: Emergency DIAGNOSES: - Transient cerebral ischemic attack, unspecified - facial numbness - facial numbness,cp, jaw pain 10/14/2022 13:[address] [facility] TYPE: Emergency COMPLAINT: - HEAD ACHE, LOW OXYGEN INPATIENT VISIT TRACKING (12 MO.) [facility] DIAGNOSES: - Atherosclerotic heart disease of [place] coronary artery without angina pectoris - Presence of aortocoronary bypass graft - Transient cerebral ischemic attack, unspecified - Type 2 diabetes mellitus without complications 10/14/2022 13:38 [facility] TYPE: Observation COMPLAINT: - PNA DIAGNOSES: - Acute pansinusitis, unspecified - Acute respiratory failure with hypoxia - Allergy status to other drugs, medicaments and biological substances - Atherosclerotic heart disease of [place] coronary artery without angina pectoris - Contact with and (suspected) exposure to COVID-19 - Do not resuscitate - Essential (primary) hypertension - Hormone replacement therapy - Hyperlipidemia, unspecified - Hypothyroidism due to medicaments and other exogenous substances - security assurance specialist (current) use of aspirin - Other planning lead (current) drug therapy - Other specified disorders of middle ear and mastoid, unspecified ear - Personal history of nicotine dependence - Pneumonia, unspecified organism [email or web address]
[2022-12-20 15:57] VITALS: BP 201/61
--- NOTE | 2022-12-20 16:00 | NUR ---
PATIENT ADMITTED AROUND 1545 TO ROOM 127 FOR PNEUMONIA. PT WITH HER CINTHYA. PATIENT APPEARS TO BE HAVING SOME HALLUCINATIONS, NOTED BY HER SAYING ODD THINGS ABOUT LINES ACROSS THE ROOM, PLANES CRASHING, AND OTHER ODD THINGS. PT REPEATING HERSELF WELL ABOUT THE FACT THAT SHE LIKES TO BE NAKED IN HER OWN HOME. PT IS ORIENTED TO SELF, DATE, YEAR, AND PLACE HOWEVER. PT RECENTLY WAS ADMITTED AT [facility] [place] FOR TIA NOVEMBER 27-2022 AND A CVA WAS RULED OUT PER MRI. PT ALSO NOTES THAT THE LIGHT IN THE ROOM IS BOTHERING HER EYES. DR. ERICKSON NOTIFIED NOT LONG AFTER PATIENT ARRIVES IN CCU ( A HOUSE CONVENIENCE) THAT SHE IS HAVING THESE VISUAL DISTURBANCES AND HALLUCINATIONS. PT WAS ALBE TO GET SELF FROM ER STRETCHER TO CCU BED MOSTLY INDEPENDLTY. PT IS STRONG ON FEET. PT OBSESSING OVER WIPING HERSELF, AND FIXATING ON GETTING INTO BED BY HERSELF, ALTHOUGH SLOW AT THIS. ULTIMATELY HARD TO ASK PATIENT ADMISSION QUESTIONS DUE TO VISUAL HALLUCINATIONS/DISTURBANCES. NEW IV PLACED IN LEFT FOREARM DUE OT PATIENT CONSTANTLY BENDING RIGHT AC IV SITE. IV AZITHROMYCIN FINISHES. IVF STARTED AT 125 ML/HR. PT REPORTS BEING HUNGRY AND "NOT SURE WHEN I EVEN ATE ANYTHING LAST."
--- NOTE | 2022-12-20 16:19 | NUR ---
DR. ERICKSON IN ROOM TO SEE PATIENT. PATIENT EXPLAINING WHAT SHE IS SEEING IN THE ROOM AND HEARING IN ROOM, SUCH "A BIG BLACK X ACROSS THE ROOM, AND I CAN HEAR AIRPLANES CRASHING." IV ABX STILL INFUSING AND IV FLUIDS TO BE STARTED. PT'S CINTHYA IN ROOM AND GOING HOME AT THIS TIME.
--- NOTE | 2022-12-20 17:13 | NUR ---
RECORDS REC'D FROM [facility] AND DR. ERICKSON CALLED WITH THE FINDINGS FROM DISCHARGE SUMMARY. ORDER REC'D TO PLACE PT ON TELE OVERNIGHT AND CONTINUE TO MONITOR. PT ABLE TO EAT DINNER AND FEED HERSELF, WITHOUT ANY SIGNS OF ASPIRATION, COUGHING, CHOKING OR ANY TROUBLE NOTED. PT ALSO DRINKING WATER WITHOUT DIFFICULTY. PT WAS SUPPOSED TO BE ON OXYGEN AT HOME, BUT PER PATIENT'S FAMILY HAS NOT BEEN WEARING THIS IN THE LAST COUPLE OF DAYS. BED ALARM PLACED ON PATIENT FOR SAFETY AND PT ORIENTED TO CALL LIGHT AND WHEN TO USE.
--- NOTE | 2022-12-20 19:30 | NUR ---
SHIFT REPORT RECEIVED. PATIENT APPEARS TO BE SLEEPING SOUNDLY. CALL LIGHT IN REACH. BED ALARM ACTIVE. PATIENT ON TELE.
[2022-12-20 20:15] VITALS: BP 134/68
--- NOTE | 2022-12-20 21:00 | NUR ---
PATIENT UP TO THE BATHROOM WITH ASSIST. PATIENT IS UNSTEADY AND REPORTS FEELING "DRUNK" WHEN SHE IS WALKING. PATIENT VOIDED AND RETURNED TO BED. DENIES FEELING SOB. VS STABLE. TOLERATING 2L NC. IVF PER ORDER, SITE WNL. PATIENT'S MEMORY IS OFF AND SHE REPORTS FEELING TIRED. HOWEVER, PATIENT IS NOT HAVING ANY VISUAL HALLUCINATIONS AT THIS TIME. STRENGTH IS EQUAL ARCELIA. NO OTHER ABNORMAL FINDINGS AT THIS TIME.
[2022-12-20 22:00] VITALS: BP 140/61
--- NOTE | 2022-12-21 00:15 | NUR ---
PATIENT APPEARS TO BE SLEEPING SOUNDLY. VS STABLE.
--- NOTE | 2022-12-21 01:15 | NUR ---
PATIENT UP TO THE BATHROOM WITH ASSIST FROM JUANITA RODRIGUEZ.
[2022-12-21 01:30] VITALS: BP 161/43
--- NOTE | 2022-12-21 04:00 | NUR ---
PATIENT PROVIDED WITH FRESH ICE WATER. PATIENT IS DROWSY BUT REPORTS SLEEPING WELL. ORIENTED TO SURROUNDINGS. DENIES HALLUCINATIONS. REPORTS BEING UNSURE OF YESTERDAY'S EVENTS BUT HAS SOME MEMORY OF BEING BROUGHT TO THE ED AND NOT FEELING WELL PRIOR TO EMS BEING CALLED. OTHERWISE; PATIENT'S NEURO STATUS IS WNL. VS STABLE. PATIENT HYPERTENSIVE, WHICH HAS BEEN NOTED ON HER HISTORY. WILL REPORT TO .
[2022-12-21 05:33] VITALS: BP 185/73
--- NOTE | 2022-12-21 05:35 | NUR ---
PATIENT PROVIDED FRESH ICE WATER. PATIENT DENIES ANY CONCERNS. CALL LIGHT IN REACH.
--- NOTE | 2022-12-21 06:56 | NUR ---
PATIENT UP TO THE BSC TO HAVE A BM. PATIENT HAD A SMEAR ON THE CHRIS PAD. PATIENT REPORTS "THE BEST NIGHT OF SLEEP IN MY LIFE".
--- NOTE | 2022-12-21 07:30 | NUR ---
REPORT RECIEVED FROM REMOTE SENSING ANALYST RN. PATIENT RESTING IN BED AT THIS TIME. BED ALARM ON FOR PATIENTS SAFETY. PER REPORT PATIENT HAS INTERMIT. HALLUCINATIONS WITH CONFUSION, BUT PATIENT IS ALERT TO SELF AND PLACE.
--- NOTE | 2022-12-21 08:30 | NUR ---
PATIENTS NOTIFIED STAFF THAT PATIENT DOES NOT HAVE HER UPPER DENTURES AND CANT EAT HER FOOD. CALLED THE KITCHEN AND NEW FOOD PROVIDED OF YOGURT AND CREAM OF WHEAT. PATIENT RESTING IN BED AND REPOSITIONED TO A MORE UPRIGHT POSITION. PATIENT CONTINUES TO HAVE HALLUCINATIONS.
--- NOTE | 2022-12-21 08:54 | NUR ---
PATIENT SITTING UP IN BED, AT BEDSIDE. VITALS CHARTED. PATIENT REFUSED BREAKFAST, ATTEMPED MULTIPLE TIMES TO FLIP TRAY OFF BEDSIDE TABLE, LAUGHING WHILE DOING SO. BP AND TEMP ELEVATED, RN AWARE. CALL LIGHT IN EASY REACH
--- NOTE | 2022-12-21 10:10 | NUR ---
PATIENT TRANSFERED TO THE MEDICAL UNIT ROOM 120. PATIENT HAD A MOMENT THIS AM OF INCREASED HALLUCINATIONS/CONFUSION AND PATIENT SHOWING MORE AGGRESIVE BEHAIVORS. PATIENT THROUGH HER WATER AND GRABBED STAFFS ARM AND REFUSED TO LET GO.PATIENT ALSO TRIED THROWING THE TELEMETRY UNIT. NOTIFIED MD. SEE [facility] FOR NEW MEDICATIONS. PATIENT IS ALSO SUSPICIOUS OF STAFF AND REFUSING TO TAKE MEDICATIONS. ATTEPMTED TO GIVE PATIENT TYLENOL THIS AM FOR HER FEVER BUT PATIENT REFUSED. ALSO NOTIFIED MD OF PATIENTS REFUSAL. REPORT GIVEN TO EHSAN RODRIGUEZ. THIS JENNIFER AND EHSAN TRANSFERED PATIENT IN HER BED TO NEW UNIT. NO OTHER QUESTIONS AT THIS TIME.
[2022-12-21 10:27] VITALS: BP 188/59
--- NOTE | 2022-12-21 11:21 | NUR ---
NOTIFIED MD ABOUT PT BLOOD PRESSURE. STILL ELEVATED AFTER PRN HYDRALAZINE. CONTINUE TO MONITOR NO NEW ORDERS GIVEN.
[2022-12-21] MEDS ORDERED: ESTRADIOL42.5 GM TOP (11:51)
[2022-12-21] MEDS ORDERED: ROSUVASTATIN CA40 MG PO (11:53)
--- NOTE | 2022-12-21 12:00 | NUR ---
ROUNDED ON PT. PT MAKING UNSENSABLE STATEMENTS AND STATING SHE WANTS TO . MD AWARE. BED ALARM IS ON AND CALL LIGHT WITHIN REACH.
--- NOTE | 2022-12-21 12:25 | NUR ---
IN IV PUMP ALARMING, RESOLVED. PT STATES "OH THERE IT GOES, I JUST PEE'D." SALEEM RN IN TO ASSIST WITH MAVIS CARE. NEW ATTENDS PROVIDED. NEW LEAD PLACED FOR TELE. NEW PULSE OX STICKER APPLIED TO FINGER. JENNIFER MOSER IN ROOM. NO OTHER NEEDS FROM THIS RN AT THIS TIME.
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
[2022-12-21 13:29] VITALS: BP 187/43
--- NOTE | 2022-12-21 13:40 | NUR ---
THIS RN TO ROOM TO ASSIST WITH IV START. IV STARTED TO LEFT HAND PER PROTOCOL. BULK DRESSING APPLIED TO PREVENT PT FROM REMOVING IV LINE. PT MAKING NON SENSICAL STATEMENTS THROUGHOUT IV START BUT OTHERWISE TOLERATED IT WELL. BRISK BLOOD RETURN NOTED. IV FLUIDS RESUMED. NO ADDITIONAL NEEDS AT THIS TIME. PTS PRIMARY RN REMAINS AT BEDSIDE. CALL LIGHT WITHIN REACH. BED ALARM ON. BED RAILS UP.
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
[2022-12-21 14:55] VITALS: BP 151/49
--- NOTE | 2022-12-21 15:22 | NUR ---
PT CAME UP TO RN STATION. PT STATED THE HIS DAUGHTER WANTED TO TALK TO THE DR. OR SOMEONE ABOUT GETTING PT PSYCH HELP AND SOMEWHERE THE PT CAN CALM DOWN. PT INFORMED RN WILL COME SPEAK TO HIM IN JUST A MOMENT. PT REFUSED TO GO INTO PT ROOM HE STATED "WE ARE AT ODDS RIGHT NOW". RN NOTIFIED
--- NOTE | 2022-12-21 15:30 | NUR ---
SPOKE TO PTS . WAS REQUESTING PSYCIATRIAC PLACEMENT FOR HIS AND STATED THEY ARE AT ODDS. CASE MANAGEMENT IS CONSULTED.
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
--- NOTE | 2022-12-21 17:37 | NUR ---
Attempted to see pt and spouse, spouse has gone home. Pt is confused. Attempted to call spouse at home for case management assessment. Charge nurse expressed concerned pt is confused. I was unable to contact spouse, I left a message asking him to return my call or notify staff in the am when he arrives. I will attempt to visit with him tomorrow morning.
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
--- NOTE | 2022-12-21 19:42 | NUR ---
REPORT RECEIVED FROM DAY SHIFT RN. PT RESTING IN BED. SAFETY PRECAUTIONS MAINTAINED. CALL LIGHT WITHIN REACH. WILL CONTINUE TO MONITOR.
--- NOTE | 2022-12-21 20:20 | NUR ---
PT ASSESSED AND MEDICATIONS GIVEN. PT PULLED OUT IV AND IS VERY COMBATIVE. SEROQUEL GIVEN. PUREWICK IN PLACE AND WORKING WELL. BED ALARM ON. SAFETY PRECAUTIONS MAINTAINED. WILL CONTINUE TO MONITOR.
[2022-12-21 20:22] VITALS: BP 160/61
--- NOTE | 2022-12-21 20:42 | NUR ---
pt AWAKE AND RIPPING OFF HER GOWN AND HOLDING HER PUREWICK IN HER HANDS. pt MAKES VARIOUS STATEMENTS SUCH "ALL YOU NEED TO DO IS CUT ME OPEN AND THEN QUARTER ME". pt REORIENTED TO DATE/TIME AND PLACE. pt REASSURED SHE IS SAFE, GOWN BACK IN PLACE AND PUREWICK LEFT OFF AT THIS TIME D/T pt NONCOMPLIANCE. BED ALARM ON AND CALL LIGHT IN REACH. pt IN VIEW OF RN STATION, WILL CONTINUE TO MONITOR.
--- NOTE | 2022-12-21 21:27 | NUR ---
Patient pulled IV out and needed a dry gown. Assisted nurse with attend change and dressing patient into a dry gown. Call light is within reach and nothing else is needed at this time.
--- NOTE | 2022-12-21 21:44 | NUR ---
DR CONCEPCION CALLED AND ASKED IF IV COULD BE LEFT OUT UNTIL THE MORNING. DR CONCEPCION STATED THAT THAT WAS OK AT THIS TIME. WILL CONTINUE TO MONITOR.
[2022-12-22] VITALS (7 sets, daily range): BP systolic 124–188; BP diastolic 32–98
--- NOTE | 2022-12-22 06:25 | NUR ---
PT RESTED WELL THROUGHOUT THE SHIFT. PT ABLE TO GET UP TO BSC. PT CONTINUES TO HAVE AMS. BED ALARM ON. VSS. SAFETY PRECAUTIONS MAINTAINED. CALL LIGHT WITHIN REACH. WILL CONTINUE TO MONITOR.
--- NOTE | 2022-12-22 06:55 | NUR ---
NEW IV STARTED ON PT. PT QUIET AND COOPERATIVE THROUGHOUT. SAFETY PRECAUTIONS MAINTAINED. WILL CONTINUE TO MONITOR.
--- NOTE | 2022-12-22 07:15 | NUR ---
RECEIVED REPORT FROM TERRENCE MOREAU RN. PT SLEEPIONG WITH EYES CLOSED. RESPIRATIONS EVEN AND REGULAR. CALL LIGHT WITHIN REACH.
--- NOTE | 2022-12-22 07:40 | NUR ---
PT AWAKE. AT BEDSIDE. PT AGITATED AND SWINGING AT AND STAFF INTERMITTENTLY. CALLED MD. MEDICATION ORDERS GIVEN FOR AGITATION PRN.
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
--- NOTE | 2022-12-22 11:13 | NUR ---
CORPORATE RELATIONS DIRECTOR REPORTED PT WAS AGITATED. UPON REASSESSMENT, PT WAS AGITATED AND INAPPROPRIATE. 1MG IM HALDOL GIVEN. BP REASSESED AND STILL ELEVATED. WILL CONTINUE TO REASSESS.
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
--- NOTE | 2022-12-22 14:30 | NUR ---
Called Karen at hospice and updated to concerns for this pt. Let her know pt has dementia and has been failing for over 6 months mentally and physically. She is not wanting to cont. any treatment in the future. She requests the chart and will discuss with their Dr. Her feeling is she will meet criterial with her dementia and basic failure to thrive. She will schedule her for an admission next . Dr. Mark would like her to stay and cont. IV antibiotics through the weekend. There is concern she will refuse antibiotics when she goes home. Will Fu on Sunday. Face sheet, Hospice consult, H&P, Labs, Imaging, med list faxed to [facility].
--- NOTE | 2022-12-22 14:49 | NUR ---
ROUNDED ON PT. PT IS A&OX4 SITTING IN CHAIR WITH VISITOR. PT STATES SHE IS FEELING BETTER. ASSISTED PT TO THE BATHROOM. PT BACK IN BED WITH THE CALL LIGHT WITHIN REACH. NO FURTHER NEEDS VOICED.
--- NOTE | 2022-12-22 15:00 | NUR ---
I returned to room and updated I spoke with Hospice and have faxed the chart. I asked Ayush, if she is willing to cont. antibiotics when she discharges and she states she doesn't think so. She also does not want any antidepresants. She again is stating she does not belive in medication. Brennen states he has been able to speak with friends and they will be able to assist this couple when needed.
--- NOTE | 2022-12-22 16:59 | NUR ---
MED REC COMPLETE
--- NOTE | 2022-12-22 20:08 | NUR ---
PT USED CALL LIGHT FOR ASSISTANCE STATING THAT "I DONT THINK I EVEN GOT DINNER". I ASKED HER IF SHE WAS HUNGRY AND SHE SAID SHE WASNT SURE. I GAVE HER THE OPTION OF BROTH OR SANDWICH BOX SHE STATED THAT SHW "WOULD LIKE BOTH SO I CAN HAVE THE MEAT TOO." AT BEDSIDE, BROUGHT FOOD, BROTH AND WATER FOR . PT LAYING IN BED WATCHING TV, NO OTHER NEEDS AT THIS TIME. CALL LIGHT IN HAND.
--- NOTE | 2022-12-22 21:09 | NUR ---
HAS NOT REQUIRED RESPIRATORY SERVICES. TAKING OFF SERVICE PLEASE CALL IF O2 REQUIRED OR ANY RT CONCERNS.
[2022-12-23 05:42] VITALS: BP 154/51
--- NOTE | 2022-12-23 06:47 | NUR ---
PT RESTED WELL DURING THE SHIFT. PT ABLE TO USE BSC. GOOD OUTPUT NOTED. BP HIGH, TREATED WITH PRN HYDRALAZINE. REST OF VSS. BED ALARM ON. SAFETY PRECAUTIONS MAINTAINED. CALL LIGHT WITHIN REACH. WILL CONTINUE TO MONITOR.
--- NOTE | 2022-12-23 07:15 | NUR ---
RECEIVED REPORT FROM MANAGER REGIONAL SALES RN. PT RESTING COMFROTABLY WITH EYES CLOSED. RESPIRATIONS EVEN AND REGULAR.
[2022-12-23 09:24] VITALS: BP 149/34
[2022-12-23 14:13] VITALS: BP 154/46
--- NOTE | 2022-12-23 14:15 | NUR ---
PT AWAKE AND SITTING IN CHAIR. CALL LIGHT WITHIN REACH. NO FURTHER NEEDS VOICED.
[2022-12-23 17:58] VITALS: BP 189/51
[2022-12-23 20:49] VITALS: BP 188/43
[2022-12-23 20:58] VITALS: BP 160/53
--- NOTE | 2022-12-24 00:09 | NUR ---
pt sleeping, took meds, still midly confused but plesant. Bed alarm on will continue to monitor.
--- NOTE | 2022-12-24 04:51 | NUR ---
Pt slept most of the shift, voided once. Fall precautions initiated. Gave hydralazine once at beging of shift for elvated BP.
[2022-12-24 04:54] VITALS: BP 132/99
--- NOTE | 2022-12-24 07:25 | NUR ---
RECEIVED REPORT FROM BULLET LUBRICATING MACHINE OPERATOR RN. PT SLEEPING IN BED WITH EYES CLOSED. RESPIRATIONS EVEN AND REGULAR. CALL LIGHT WITHIN REACH.
[2022-12-24 09:07] VITALS: BP 174/31
--- NOTE | 2022-12-24 09:15 | NUR ---
PT BP 176/31. HR 40S-40S. PT REFUSED TO HAVE BP TAKEN ON UPPER ARM. NO SYMPTOMS ASSOCIATED WITH BP. WILL NOTIFY MD UPON ARRIVAL.
[2022-12-24] MEDS ORDERED: AMOXICILLIN875 MG PO (09:42)
--- NOTE | 2022-12-24 09:43 | NUR ---
PTS TO NURSES STATION STATING THAT PT NEEDS TO GET UP TO RESTROOM. 1 PERSON ASSIST WITH FWW UP TO RESTROOM. PT VOIDS AND PASSES GAS. MAVIS CARE PER PT. 1 PERSON ASSIST BACK TO CHAIR. IV INFUSION COMPLETE. IV FLUSHED AND SALINE LOCKED, ALCOHOL CAP APPLIED. PT VISITING WITH . LINENS CHANGED. NO ADDITIONAL REQUESTS OR COMPLAINTS. CALL LIGHT IN LAP. CHAIR ALARMON. PTS PRIMARY RN UPDATED.
--- NOTE | 2022-12-24 10:45 | NUR ---
NOTIFIED MD ABOUT PTS B/P AND PULSE. VERBAL ORDERS FOR IV LOPRESSOR GVEN. UPON ENTERING THE PTS ROOM, PT REFUSED THE MEDICATION AND ALL OTHER MEDS. PT STATED SHE IS READY TO GO HOME. VITAL SIGNS TAKEN AND IV REMOVED. DISCHARGE INSTRUCTIONS GIVEN.
[2022-12-24 10:47] VITALS: BP 179/47
== END 2022-12-24 10:55 | disposition home or self-care (01) | DRG 177 ==
LOC: ED 12:09 → MS 14:38 → CCU 14:38 → MS 14:38
PROVIDERS: ADMIT Family Medicine; ATTEND Internal Medicine
DX: J69.0 Pneumonitis due to inhalation of food and vomit (principal); J96.21 Acute and chronic respiratory failure with hypoxia; N17.9 Acute kidney failure, unspecified; G93.40 Encephalopathy, unspecified; Z66 Do not resuscitate; I10 Essential (primary) hypertension; E03.9 Hypothyroidism, unspecified; E05.00 Thyrotoxicosis with diffuse goiter without thyrotoxic crisis or storm; F41.9 Anxiety disorder, unspecified; F32.A Depression, unspecified; M10.9 Gout, unspecified; E11.9 Type 2 diabetes mellitus without complications; Z87.891 Personal history of nicotine dependence; Z90.49 Acquired absence of other specified parts of digestive tract; Z98.890 Other specified postprocedural states; Z98.51 Tubal ligation status; Z95.1 Presence of aortocoronary bypass graft; Z79.899 Other long term (current) drug therapy; Z79.82 Long term (current) use of aspirin; Z79.2 Long term (current) use of antibiotics; Z79.890 Hormone replacement therapy; Z86.73 Personal history of transient ischemic attack (TIA), and cerebral infarction without residual deficits; Z99.81 Dependence on supplemental oxygen; Z98.62 Peripheral vascular angioplasty status; Z59.19 Other inadequate housing
CPT/HCPCS: 36415; 51701; 70450; 71045; 80053; 81001; 83735; 84100; 84443; 85025; 87040; 87449; 87899; 94760; 97116; 97161; 97530; 99285 25; A9270; J0360; J0456; J0696; J1630; J1650; J3480; J3490; J7030; J7060; J7121

== ENCOUNTER 2024-09-01 03:15 | Emergency (ER) | payer MEDICARE, OTHER ==
[~2024-09-01] VITALS: Ht 152.4 cm; Wt 70.2 kg
[~2024-09-01 03:15] MED LIST changes: +AMOXICILLIN875 MG PO; +CLOPIDOGREL75 MG PO; +ESTRADIOL42.5 GM TOP; +PRAVASTATIN SOD10 MG PO; +ROSUVASTATIN CA40 MG PO
[2024-09-01] MEDS ORDERED: ALPRAZolam 0.5 MG TAB PO ONE (04:15)
[2024-09-01] MEDS ORDERED: TRAMADOL HCL50 MG PO (04:24)
[2024-09-01] MEDS ORDERED: HYDROCODONE/ACETA 5/325 TAB PO ONE (04:30)
[2024-09-01] MEDS ORDERED: IBUPROFEN 800 MG TAB PO ONE (04:30)
[2024-09-01] MEDS ORDERED: TRAMADOL HCL 50 MG HOME.PACK PO ONE (04:30)
[2024-09-01 04:32] LABS: BASOPHILS 0.6 % (0-2); EOSINOPHILS 2.6 % (0-6); HEMATOCRIT 33.9 % (35.0-50.0); HEMOGLOBIN 11.6 g/dL (12.0-18.0); LYMPHOCYTES 17.2 % (24-44); MCH 31.1 (27-36); MCHC 34.2 g/dl (30-36); MCV 90.7 fl (81-99); MONOCYTES 10.7 % (0-12); NEUTROPHILS 68.9 % (39-80); PLATELET COUNT 252 K/uL (140-440); RBC 3.73 M/ul (4.3-5.7); RDW 13.6 (10.5-15.0)
[2024-09-01 04:41] VITALS: BP 181/46
== END 2024-09-01 04:44 | disposition home or self-care (01) ==
LOC: ED 03:15
PROVIDERS: Family Medicine
DX: M19.032 Primary osteoarthritis, left wrist (principal); M85.68 Other cyst of bone, other site; I10 Essential (primary) hypertension; E11.9 Type 2 diabetes mellitus without complications; I25.2 Old myocardial infarction; Z87.891 Personal history of nicotine dependence; Z88.8 Allergy status to other drugs, medicaments and biological substances; Z79.82 Long term (current) use of aspirin; Z79.890 Hormone replacement therapy; Z79.899 Other long term (current) drug therapy
CPT/HCPCS: 36415; 73110; 84550; 85025; 99283; A9270